=== PATIENT | female | born 1960 | race Caucasian/White ===

== ENCOUNTER 2017-08-31 11:00 | Day surgery (SDC) | payer MEDICAID ==
[~2017-08-31 11:00] MED LIST: ASPI-1264 PO; CALC260T6 PO; CYAN1TAB16 PO; IBUP-2264 PO; LEVO50TA8 PO; LISI-600 PO; LORA5SOL; OXYB5TAB11 PO; VIT1TABL83 PO
[2017-08-31] MEDS ORDERED: LIDOcaine 2% 5ml jelly ONE (12:17)
== END 2017-08-31 13:18 | disposition home or self-care (01) ==
LOC: WOUND CARE 11:00
PROVIDERS: ATTEND Surgery
DX: E11.621 Type 2 diabetes mellitus with foot ulcer (principal); L97.521 Non-pressure chronic ulcer of other part of left foot limited to breakdown of skin; L89.899 Pressure ulcer of other site, unspecified stage; E11.42 Type 2 diabetes mellitus with diabetic polyneuropathy; E03.9 Hypothyroidism, unspecified; I89.0 Lymphedema, not elsewhere classified; I10 Essential (primary) hypertension; I87.2 Venous insufficiency (chronic) (peripheral); F10.120 Alcohol abuse with intoxication, uncomplicated; Z79.82 Long term (current) use of aspirin; Z72.89 Other problems related to lifestyle
CPT/HCPCS: 11042; A6021; A6206; A6209; A6446

== ENCOUNTER 2017-09-13 10:45 | Outpatient (CLI) | payer MEDICAID | END 2017-09-13 12:05 | disposition home or self-care (01) | LOC: WOUND CARE 10:45 → EDSTATUS 11:00 → WOUND CARE 12:05 | PROVIDERS: ATTEND Surgery | DX: E11.621 Type 2 diabetes mellitus with foot ulcer (principal); L89.899 Pressure ulcer of other site, unspecified stage; L97.521 Non-pressure chronic ulcer of other part of left foot limited to breakdown of skin; I10 Essential (primary) hypertension; E03.9 Hypothyroidism, unspecified; I89.0 Lymphedema, not elsewhere classified; I87.2 Venous insufficiency (chronic) (peripheral); F10.120 Alcohol abuse with intoxication, uncomplicated; E11.42 Type 2 diabetes mellitus with diabetic polyneuropathy; Z79.82 Long term (current) use of aspirin; Z72.89 Other problems related to lifestyle | CPT/HCPCS: 99215; A4414; A6212 ==

== ENCOUNTER 2017-10-05 09:06 | Day surgery (SDC) | payer MEDICAID ==
[2017-10-05] MEDS ORDERED: LIDOcaine 2% 5ml jelly ONE (09:58)
== END 2017-10-05 11:24 | disposition home or self-care (01) ==
LOC: WOUND CARE 09:06
PROVIDERS: ATTEND Surgery
DX: E11.621 Type 2 diabetes mellitus with foot ulcer (principal); L89.899 Pressure ulcer of other site, unspecified stage; L97.521 Non-pressure chronic ulcer of other part of left foot limited to breakdown of skin; I10 Essential (primary) hypertension; E03.9 Hypothyroidism, unspecified; I89.0 Lymphedema, not elsewhere classified; I87.2 Venous insufficiency (chronic) (peripheral); F10.120 Alcohol abuse with intoxication, uncomplicated; E11.42 Type 2 diabetes mellitus with diabetic polyneuropathy; Z79.82 Long term (current) use of aspirin; Z72.89 Other problems related to lifestyle
CPT/HCPCS: 11042; A6021; A6206; A6209

== ENCOUNTER 2017-10-12 11:19 | Day surgery (SDC) | payer MEDICAID ==
[2017-10-12] MEDS ORDERED: LIDOcaine 2% 5ml jelly ONE (11:35)
[2017-10-12] MEDS ORDERED: CIPR-259 PO (12:13)
== END 2017-10-12 12:15 | disposition home or self-care (01) ==
LOC: WOUND CARE 11:19
PROVIDERS: ATTEND Surgery
DX: E11.621 Type 2 diabetes mellitus with foot ulcer (principal); L89.899 Pressure ulcer of other site, unspecified stage; L97.521 Non-pressure chronic ulcer of other part of left foot limited to breakdown of skin; E11.42 Type 2 diabetes mellitus with diabetic polyneuropathy; I10 Essential (primary) hypertension; E03.9 Hypothyroidism, unspecified; I89.0 Lymphedema, not elsewhere classified; I87.2 Venous insufficiency (chronic) (peripheral); F10.120 Alcohol abuse with intoxication, uncomplicated; Z79.82 Long term (current) use of aspirin; Z72.89 Other problems related to lifestyle
CPT/HCPCS: 11042; 87070; 87075; 87102; 87186; A6021; A6206; A6446; 87077

== ENCOUNTER 2017-10-19 10:29 | Day surgery (SDC) | payer MEDICAID ==
[~2017-10-19 10:29] MED LIST changes: +CIPR-259 PO
[2017-10-19] MEDS ORDERED: LIDOcaine 2% 5ml jelly ONE (12:19)
[2017-10-19] MEDS ORDERED: CEPH250T PO (13:05)
== END 2017-10-19 13:08 | disposition home or self-care (01) ==
LOC: WOUND CARE 10:29
PROVIDERS: ATTEND Surgery
DX: E11.621 Type 2 diabetes mellitus with foot ulcer (principal); L89.899 Pressure ulcer of other site, unspecified stage; L97.521 Non-pressure chronic ulcer of other part of left foot limited to breakdown of skin; E11.42 Type 2 diabetes mellitus with diabetic polyneuropathy; I10 Essential (primary) hypertension; E03.9 Hypothyroidism, unspecified; I89.0 Lymphedema, not elsewhere classified; I87.2 Venous insufficiency (chronic) (peripheral); F10.120 Alcohol abuse with intoxication, uncomplicated; Z79.82 Long term (current) use of aspirin; Z72.89 Other problems related to lifestyle
CPT/HCPCS: 11042; A6206; A6446

== ENCOUNTER 2017-11-02 11:06 | Day surgery (SDC) | payer MEDICAID ==
[~2017-11-02 11:06] MED LIST changes: +CEPH250T PO; -CIPR-259 PO
[2017-11-02] MEDS ORDERED: LIDOcaine 2% 5ml jelly ONE (12:38)
== END 2017-11-02 13:22 | disposition home or self-care (01) ==
LOC: WOUND CARE 11:06
PROVIDERS: ATTEND Surgery
DX: E11.621 Type 2 diabetes mellitus with foot ulcer (principal); L89.899 Pressure ulcer of other site, unspecified stage; L97.521 Non-pressure chronic ulcer of other part of left foot limited to breakdown of skin; E11.42 Type 2 diabetes mellitus with diabetic polyneuropathy; I10 Essential (primary) hypertension; E03.9 Hypothyroidism, unspecified; I89.0 Lymphedema, not elsewhere classified; I87.2 Venous insufficiency (chronic) (peripheral); F10.120 Alcohol abuse with intoxication, uncomplicated; Z79.82 Long term (current) use of aspirin; Z72.89 Other problems related to lifestyle
CPT/HCPCS: 11042; A6021; A6206; A6209; A6446

== ENCOUNTER 2017-11-09 10:58 | Day surgery (SDC) | payer MEDICAID ==
[2017-11-09] MEDS ORDERED: LIDOcaine 2% 5ml jelly ONE (11:24)
== END 2017-11-09 12:15 | disposition home or self-care (01) ==
LOC: WOUND CARE 10:58
PROVIDERS: ATTEND Surgery
DX: E11.621 Type 2 diabetes mellitus with foot ulcer (principal); L89.899 Pressure ulcer of other site, unspecified stage; L97.521 Non-pressure chronic ulcer of other part of left foot limited to breakdown of skin; E11.42 Type 2 diabetes mellitus with diabetic polyneuropathy; I10 Essential (primary) hypertension; E03.9 Hypothyroidism, unspecified; I89.0 Lymphedema, not elsewhere classified; I87.2 Venous insufficiency (chronic) (peripheral); F10.120 Alcohol abuse with intoxication, uncomplicated; Z79.82 Long term (current) use of aspirin; Z72.89 Other problems related to lifestyle
CPT/HCPCS: 11042; A6021; A6209; A6446

== ENCOUNTER 2017-11-13 19:50 | Emergency (ER) | payer MEDICAID ==
[~2017-11-13] VITALS: Ht 167.6 cm; Wt 81.8 kg
[~2017-11-13 19:50] MED LIST changes: -CEPH250T PO
[2017-11-13 22:38] VITALS: BP 116/59
== END 2017-11-13 22:39 | disposition home or self-care (01) ==
LOC: ER 19:50
DX: F10.10 Alcohol abuse, uncomplicated (principal); I10 Essential (primary) hypertension; Z60.2 Problems related to living alone; Z86.19 Personal history of other infectious and parasitic diseases; Z79.82 Long term (current) use of aspirin; Z79.899 Other long term (current) drug therapy
CPT/HCPCS: 99283; A6255; A6257; A6402; A6446

== ENCOUNTER 2017-11-16 10:49 | Day surgery (SDC) | payer MEDICAID | END 2017-11-16 11:46 | disposition home or self-care (01) | LOC: WOUND CARE 10:49 | PROVIDERS: ATTEND Surgery | DX: E11.621 Type 2 diabetes mellitus with foot ulcer (principal); L89.899 Pressure ulcer of other site, unspecified stage; L97.521 Non-pressure chronic ulcer of other part of left foot limited to breakdown of skin; L97.511 Non-pressure chronic ulcer of other part of right foot limited to breakdown of skin; G62.9 Polyneuropathy, unspecified; E03.9 Hypothyroidism, unspecified; I89.0 Lymphedema, not elsewhere classified; I87.2 Venous insufficiency (chronic) (peripheral); F10.10 Alcohol abuse, uncomplicated; I10 Essential (primary) hypertension; Z79.82 Long term (current) use of aspirin; Z79.899 Other long term (current) drug therapy; Z72.89 Other problems related to lifestyle | CPT/HCPCS: 97597; A4414; A6021; A6206; A6446 ==

== ENCOUNTER 2017-11-23 10:51 | Outpatient (CLI) | payer MEDICAID | END 2017-11-23 11:46 | disposition home or self-care (01) | LOC: WOUND CARE 10:51 → EDSTATUS 11:00 → WOUND CARE 11:46 | PROVIDERS: ATTEND Surgery | DX: E11.621 Type 2 diabetes mellitus with foot ulcer (principal); L97.521 Non-pressure chronic ulcer of other part of left foot limited to breakdown of skin; L97.511 Non-pressure chronic ulcer of other part of right foot limited to breakdown of skin; E11.42 Type 2 diabetes mellitus with diabetic polyneuropathy; I10 Essential (primary) hypertension; E03.9 Hypothyroidism, unspecified; I89.0 Lymphedema, not elsewhere classified; I87.2 Venous insufficiency (chronic) (peripheral); F10.120 Alcohol abuse with intoxication, uncomplicated; Z79.82 Long term (current) use of aspirin | CPT/HCPCS: 99211; A6021; A6206; A6212 ==

== ENCOUNTER 2017-11-30 11:19 | Day surgery (SDC) | payer MEDICAID ==
[2017-11-30] MEDS ORDERED: LIDOcaine 2% 5ml jelly ONE ×2 (11:40→11:48)
== END 2017-11-30 12:38 | disposition home or self-care (01) ==
LOC: WOUND CARE 11:19
PROVIDERS: ATTEND Surgery
DX: E11.621 Type 2 diabetes mellitus with foot ulcer (principal); E11.42 Type 2 diabetes mellitus with diabetic polyneuropathy; E03.9 Hypothyroidism, unspecified; I89.0 Lymphedema, not elsewhere classified; I87.2 Venous insufficiency (chronic) (peripheral); I10 Essential (primary) hypertension; F10.120 Alcohol abuse with intoxication, uncomplicated; Z79.82 Long term (current) use of aspirin
CPT/HCPCS: 11042; 97597; A6021; A6206; A6446

== ENCOUNTER 2017-12-07 10:47 | Day surgery (SDC) | payer MEDICAID ==
[2017-12-07] MEDS ORDERED: LIDOcaine 2% 5ml jelly ONE (11:45)
== END 2017-12-07 12:41 | disposition home or self-care (01) ==
LOC: WOUND CARE 10:47
PROVIDERS: ATTEND Surgery
DX: E11.621 Type 2 diabetes mellitus with foot ulcer (principal); L97.521 Non-pressure chronic ulcer of other part of left foot limited to breakdown of skin; L97.511 Non-pressure chronic ulcer of other part of right foot limited to breakdown of skin; E11.42 Type 2 diabetes mellitus with diabetic polyneuropathy; I87.2 Venous insufficiency (chronic) (peripheral); I10 Essential (primary) hypertension; E03.9 Hypothyroidism, unspecified; I89.0 Lymphedema, not elsewhere classified; F10.120 Alcohol abuse with intoxication, uncomplicated; Z79.82 Long term (current) use of aspirin
CPT/HCPCS: 15275; A6021; A6206; A6209; A6222; A6446; Q4131; A6250

== ENCOUNTER 2017-12-14 11:02 | Outpatient (CLI) | payer MEDICAID ==
[2017-12-14] MEDS ORDERED: gadopentetate dimeglumine 7.5 MMOL/15 ML syringe ONE (15:32)
== END 2017-12-14 12:14 | disposition home or self-care (01) ==
LOC: WOUND CARE 11:02
PROVIDERS: ATTEND Surgery
DX: E11.621 Type 2 diabetes mellitus with foot ulcer (principal); L97.521 Non-pressure chronic ulcer of other part of left foot limited to breakdown of skin; L97.511 Non-pressure chronic ulcer of other part of right foot limited to breakdown of skin; E11.42 Type 2 diabetes mellitus with diabetic polyneuropathy; I87.2 Venous insufficiency (chronic) (peripheral); I10 Essential (primary) hypertension; E03.9 Hypothyroidism, unspecified; I89.0 Lymphedema, not elsewhere classified; F10.120 Alcohol abuse with intoxication, uncomplicated; Z79.82 Long term (current) use of aspirin
CPT/HCPCS: 73720; 99211; A6021; A6206; A6209; A6222; A6446; A9579

== ENCOUNTER 2017-12-21 10:25 | Outpatient (CLI) | payer MEDICAID | END 2017-12-21 11:13 | disposition home or self-care (01) | LOC: WOUND CARE 10:25 → EDSTATUS 11:00 → WOUND CARE 11:13 | PROVIDERS: ATTEND Surgery | DX: E11.621 Type 2 diabetes mellitus with foot ulcer (principal); L97.521 Non-pressure chronic ulcer of other part of left foot limited to breakdown of skin; L97.511 Non-pressure chronic ulcer of other part of right foot limited to breakdown of skin; E11.42 Type 2 diabetes mellitus with diabetic polyneuropathy; I87.2 Venous insufficiency (chronic) (peripheral); I10 Essential (primary) hypertension; E03.9 Hypothyroidism, unspecified; I89.0 Lymphedema, not elsewhere classified; F10.120 Alcohol abuse with intoxication, uncomplicated; Z79.82 Long term (current) use of aspirin | CPT/HCPCS: 99215; A4414; A6212; 29581 ==

== ENCOUNTER 2018-01-04 10:59 | Day surgery (SDC) | payer MEDICAID | END 2018-01-04 12:11 | disposition home or self-care (01) | LOC: WOUND CARE 10:59 | PROVIDERS: ATTEND Surgery | DX: E11.621 Type 2 diabetes mellitus with foot ulcer (principal); L89.899 Pressure ulcer of other site, unspecified stage; L97.522 Non-pressure chronic ulcer of other part of left foot with fat layer exposed; E11.42 Type 2 diabetes mellitus with diabetic polyneuropathy; E11.69 Type 2 diabetes mellitus with other specified complication; M86.572 Other chronic hematogenous osteomyelitis, left ankle and foot; I87.2 Venous insufficiency (chronic) (peripheral); I10 Essential (primary) hypertension; E03.9 Hypothyroidism, unspecified; I89.0 Lymphedema, not elsewhere classified; F10.120 Alcohol abuse with intoxication, uncomplicated; Z79.82 Long term (current) use of aspirin | CPT/HCPCS: 97597; A4414 ==

== ENCOUNTER 2018-01-18 10:45 | Day surgery (SDC) | payer MEDICAID | END 2018-01-18 12:49 | disposition home or self-care (01) | LOC: WOUND CARE 10:45 | PROVIDERS: ATTEND Surgery | DX: E11.621 Type 2 diabetes mellitus with foot ulcer (principal); L89.899 Pressure ulcer of other site, unspecified stage; L97.522 Non-pressure chronic ulcer of other part of left foot with fat layer exposed; E11.42 Type 2 diabetes mellitus with diabetic polyneuropathy; E11.69 Type 2 diabetes mellitus with other specified complication; M86.572 Other chronic hematogenous osteomyelitis, left ankle and foot; I87.2 Venous insufficiency (chronic) (peripheral); I10 Essential (primary) hypertension; E03.9 Hypothyroidism, unspecified; I89.0 Lymphedema, not elsewhere classified; F10.120 Alcohol abuse with intoxication, uncomplicated; Z79.82 Long term (current) use of aspirin | CPT/HCPCS: 97597; A4414; A6021; A6206 ==

== ENCOUNTER 2018-02-01 10:57 | Day surgery (SDC) | payer MEDICAID | END 2018-02-01 13:07 | disposition home or self-care (01) | LOC: WOUND CARE 10:57 | PROVIDERS: ATTEND Surgery | DX: E11.621 Type 2 diabetes mellitus with foot ulcer (principal); L97.522 Non-pressure chronic ulcer of other part of left foot with fat layer exposed; L89.899 Pressure ulcer of other site, unspecified stage; L97.511 Non-pressure chronic ulcer of other part of right foot limited to breakdown of skin; E11.42 Type 2 diabetes mellitus with diabetic polyneuropathy; E11.69 Type 2 diabetes mellitus with other specified complication; M86.572 Other chronic hematogenous osteomyelitis, left ankle and foot; I87.2 Venous insufficiency (chronic) (peripheral); I10 Essential (primary) hypertension; E03.9 Hypothyroidism, unspecified; I89.0 Lymphedema, not elsewhere classified; F10.120 Alcohol abuse with intoxication, uncomplicated; Z79.82 Long term (current) use of aspirin | CPT/HCPCS: 11042; A6021; A6206 ==

== ENCOUNTER 2018-02-08 10:48 | Day surgery (SDC) | payer MEDICAID ==
[2018-02-08] MEDS ORDERED: LIDOcaine 2% 5ml jelly ONE (11:14)
== END 2018-02-08 11:49 | disposition home or self-care (01) ==
LOC: WOUND CARE 10:48
PROVIDERS: ATTEND Surgery
DX: E11.621 Type 2 diabetes mellitus with foot ulcer (principal); L97.522 Non-pressure chronic ulcer of other part of left foot with fat layer exposed; L97.511 Non-pressure chronic ulcer of other part of right foot limited to breakdown of skin; E11.42 Type 2 diabetes mellitus with diabetic polyneuropathy; E11.69 Type 2 diabetes mellitus with other specified complication; M86.572 Other chronic hematogenous osteomyelitis, left ankle and foot; I87.2 Venous insufficiency (chronic) (peripheral); I10 Essential (primary) hypertension; E03.9 Hypothyroidism, unspecified; I89.0 Lymphedema, not elsewhere classified; F10.120 Alcohol abuse with intoxication, uncomplicated; Z79.82 Long term (current) use of aspirin
CPT/HCPCS: 97597; A6021; A6206

== ENCOUNTER 2018-02-15 09:42 | Day surgery (SDC) | payer MEDICAID ==
[2018-02-15] MEDS ORDERED: LIDOcaine 2% 5ml jelly ONE (10:13)
== END 2018-02-15 11:00 | disposition home or self-care (01) ==
LOC: WOUND CARE 09:42
PROVIDERS: ATTEND Surgery
DX: E11.621 Type 2 diabetes mellitus with foot ulcer (principal); L89.892 Pressure ulcer of other site, stage 2; L97.511 Non-pressure chronic ulcer of other part of right foot limited to breakdown of skin; L97.522 Non-pressure chronic ulcer of other part of left foot with fat layer exposed; E11.42 Type 2 diabetes mellitus with diabetic polyneuropathy; E11.69 Type 2 diabetes mellitus with other specified complication; M86.572 Other chronic hematogenous osteomyelitis, left ankle and foot; I87.2 Venous insufficiency (chronic) (peripheral); I10 Essential (primary) hypertension; E03.9 Hypothyroidism, unspecified; I89.0 Lymphedema, not elsewhere classified; F10.120 Alcohol abuse with intoxication, uncomplicated; Z79.82 Long term (current) use of aspirin
CPT/HCPCS: 97597; A6021; A6206

== ENCOUNTER 2018-02-24 08:53 | Day surgery (SDC) | payer MEDICAID | END 2018-02-24 10:12 | disposition home or self-care (01) | LOC: WOUND CARE 08:53 | PROVIDERS: ATTEND Surgery | DX: E11.621 Type 2 diabetes mellitus with foot ulcer (principal); L89.892 Pressure ulcer of other site, stage 2; L97.511 Non-pressure chronic ulcer of other part of right foot limited to breakdown of skin; L97.522 Non-pressure chronic ulcer of other part of left foot with fat layer exposed; E11.42 Type 2 diabetes mellitus with diabetic polyneuropathy; E11.69 Type 2 diabetes mellitus with other specified complication; M86.572 Other chronic hematogenous osteomyelitis, left ankle and foot; I87.2 Venous insufficiency (chronic) (peripheral); I10 Essential (primary) hypertension; E03.9 Hypothyroidism, unspecified; I89.0 Lymphedema, not elsewhere classified; F10.120 Alcohol abuse with intoxication, uncomplicated; Z79.82 Long term (current) use of aspirin | CPT/HCPCS: 97597; A6021; A6206 ==

== ENCOUNTER 2018-03-03 09:13 | Outpatient (CLI) | payer MEDICAID | END 2018-03-03 10:49 | disposition home or self-care (01) | LOC: WOUND CARE 09:13 | PROVIDERS: ATTEND Surgery | DX: E11.621 Type 2 diabetes mellitus with foot ulcer (principal); L89.892 Pressure ulcer of other site, stage 2; L97.511 Non-pressure chronic ulcer of other part of right foot limited to breakdown of skin; L97.522 Non-pressure chronic ulcer of other part of left foot with fat layer exposed; E11.42 Type 2 diabetes mellitus with diabetic polyneuropathy; E11.69 Type 2 diabetes mellitus with other specified complication; M86.572 Other chronic hematogenous osteomyelitis, left ankle and foot; I87.2 Venous insufficiency (chronic) (peripheral); I10 Essential (primary) hypertension; E03.9 Hypothyroidism, unspecified; I89.0 Lymphedema, not elsewhere classified; F10.120 Alcohol abuse with intoxication, uncomplicated; Z79.82 Long term (current) use of aspirin | CPT/HCPCS: 99214; A4414 ==

== ENCOUNTER 2018-03-22 10:57 | Day surgery (SDC) | payer MEDICAID | END 2018-03-22 12:00 | disposition home or self-care (01) | LOC: WOUND CARE 10:57 | PROVIDERS: ATTEND Surgery | DX: E11.621 Type 2 diabetes mellitus with foot ulcer (principal); L89.892 Pressure ulcer of other site, stage 2; L97.511 Non-pressure chronic ulcer of other part of right foot limited to breakdown of skin; L97.522 Non-pressure chronic ulcer of other part of left foot with fat layer exposed; E11.42 Type 2 diabetes mellitus with diabetic polyneuropathy; E11.69 Type 2 diabetes mellitus with other specified complication; M86.572 Other chronic hematogenous osteomyelitis, left ankle and foot; I87.2 Venous insufficiency (chronic) (peripheral); I10 Essential (primary) hypertension; E03.9 Hypothyroidism, unspecified; I89.0 Lymphedema, not elsewhere classified; F10.120 Alcohol abuse with intoxication, uncomplicated; Z79.82 Long term (current) use of aspirin | CPT/HCPCS: 97597; A4414; A6222 ==

== ENCOUNTER 2018-04-05 11:00 | Day surgery (SDC) | payer MEDICAID | END 2018-04-05 12:40 | disposition home or self-care (01) | LOC: WOUND CARE 11:00 | PROVIDERS: ATTEND Surgery | DX: E11.621 Type 2 diabetes mellitus with foot ulcer (principal); L89.892 Pressure ulcer of other site, stage 2; L97.511 Non-pressure chronic ulcer of other part of right foot limited to breakdown of skin; E11.42 Type 2 diabetes mellitus with diabetic polyneuropathy; E11.69 Type 2 diabetes mellitus with other specified complication; M86.572 Other chronic hematogenous osteomyelitis, left ankle and foot; I87.2 Venous insufficiency (chronic) (peripheral); I10 Essential (primary) hypertension; E03.9 Hypothyroidism, unspecified; I89.0 Lymphedema, not elsewhere classified; F10.120 Alcohol abuse with intoxication, uncomplicated; Z79.82 Long term (current) use of aspirin | CPT/HCPCS: 99215; A4414; A6021 ==

== ENCOUNTER 2019-01-09 10:34 | Day surgery (SDC) | payer MEDICAID ==
[2019-01-09] MEDS ORDERED: FOLI0.4T2 PO (12:48)
--- NOTE | 2019-01-09 13:00 | NUR ---
Patient ambulated with walker accompanied by daughter from [facility] and was admitted to outpatient wound care for physician visit with Uche Cruz MD. Dressing removed, wound cleansed. Patient assessed for changes in conditions, medications and medical history. 1220 - Dr. Cruz at bedside accompanied by RN. Wound assessed, time out performed by MD/RN. Wound debrided as detailed in the physician progress/procedure note. Plan of care discussed with patient. Dressings placed per MD orders. Patient instructed on the signs and symptoms of infection and to call the Wound Center if any occur or to go to the ED if we are closed: Increased pain in wound Increase in drainage from the wound Redness in the skin surrounding the wound Bleeding from the wound Temperature of 101 or greater Patient instructed that the weight of their body puts a large amount of pressure on their wounds. This pressure keeps the new tissue from growing and inhibits new blood vessels from forming. Explained that, if they continue to bear weight on a body part that has a wound, the time it takes to heal the wound increases, the wound may get worse or the wound may not heal at all. Patient verbalized understanding of all discharge instructions and plan of care and ambulated with walker accompanied by her daughter out to [facility] in stable condition with no sign or symptom of distress at time of discharge.
== END 2019-01-09 13:40 | disposition home or self-care (01) ==
LOC: WOUND CARE 10:34
PROVIDERS: ATTEND Surgery
DX: E11.621 Type 2 diabetes mellitus with foot ulcer (principal); L89.892 Pressure ulcer of other site, stage 2; L97.511 Non-pressure chronic ulcer of other part of right foot limited to breakdown of skin; L97.521 Non-pressure chronic ulcer of other part of left foot limited to breakdown of skin; E11.42 Type 2 diabetes mellitus with diabetic polyneuropathy; E11.69 Type 2 diabetes mellitus with other specified complication; M86.572 Other chronic hematogenous osteomyelitis, left ankle and foot; I87.2 Venous insufficiency (chronic) (peripheral); I10 Essential (primary) hypertension; E03.9 Hypothyroidism, unspecified; I89.0 Lymphedema, not elsewhere classified; F10.120 Alcohol abuse with intoxication, uncomplicated; Z79.82 Long term (current) use of aspirin
CPT/HCPCS: 97597; A6209; L3260; A6021; A6206; A6446

== ENCOUNTER 2019-01-16 10:40 | Day surgery (SDC) | payer MEDICAID ==
[~2019-01-16 10:40] MED LIST changes: -ASPI-1264 PO; -CYAN1TAB16 PO; +FOLI0.4T2 PO; -LISI-600 PO
[2019-01-16] MEDS ORDERED: LIDOcaine/PRILOcaine 5gm cream TP ONE (11:17)
--- NOTE | 2019-01-16 14:54 | NUR ---
Patient ambulated independently from [facility] and was admitted to outpatient wound care for physician visit with Uche Cruz MD. Dressing removed, wound cleansed and Emla cream applied per order. Patient assessed for changes in conditions, medications and medical history. Dr. Cruz at bedside accompanied by RN. Wound assessed, time out performed by MD/RN. Wound debrided as detailed in the physician progress/procedure note. Plan of care discussed with patient. Dressings placed per MD orders. Patient instructed on the signs and symptoms of infection and to call the Wound Center if any occur or to go to the ED if we are closed: Increased pain in wound Increase in drainage from the wound Redness in the skin surrounding the wound Bleeding from the wound Temperature of 101 or greater Patient instructed that the weight of their body puts a large amount of pressure on their wounds. This pressure keeps the new tissue from growing and inhibits new blood vessels from forming. Explained that, if they continue to bear weight on a body part that has a wound, the time it takes to heal the wound increases, the wound may get worse or the wound may not heal at all. Patient verbalized understanding of all discharge instructions and plan of care and ambulated independently out to [facility] in stable condition with no sign or symptom of distress at time of discharge. Addendum: 01/16/19 at 1455 by Macy Krause RN Amended: Links added.
== END 2019-01-16 12:57 | disposition home or self-care (01) ==
LOC: WOUND CARE 10:40
PROVIDERS: ATTEND Surgery
DX: E11.621 Type 2 diabetes mellitus with foot ulcer (principal); L97.511 Non-pressure chronic ulcer of other part of right foot limited to breakdown of skin; L97.521 Non-pressure chronic ulcer of other part of left foot limited to breakdown of skin; E11.42 Type 2 diabetes mellitus with diabetic polyneuropathy; E11.69 Type 2 diabetes mellitus with other specified complication; M86.572 Other chronic hematogenous osteomyelitis, left ankle and foot; I87.2 Venous insufficiency (chronic) (peripheral); I10 Essential (primary) hypertension; E03.9 Hypothyroidism, unspecified; I89.0 Lymphedema, not elsewhere classified; F10.120 Alcohol abuse with intoxication, uncomplicated; Z79.82 Long term (current) use of aspirin
CPT/HCPCS: 97597; A6209; A6021; A6206; A6446

== ENCOUNTER 2019-01-25 09:15 | Day surgery (SDC) | payer MEDICAID ==
--- NOTE | 2019-01-25 11:00 | NUR ---
Patient ambulated with cane from [facility] and was admitted to outpatient wound care for physician visit with Uche Cruz MD. Dressing removed, wound cleansed. Patient assessed for changes in conditions, medications and medical history. 1000 - Dr. Cruz at bedside accompanied by RN. Wound assessed, time out performed by MD/RN. Wound debrided as detailed in the physician progress/procedure note. Plan of care discussed with patient. Dressings placed per MD orders. Patient instructed on the signs and symptoms of infection and to call the Wound Center if any occur or to go to the ED if we are closed: Increased pain in wound Increase in drainage from the wound Redness in the skin surrounding the wound Bleeding from the wound Temperature of 101 or greater Patient instructed that the weight of their body puts a large amount of pressure on their wounds. This pressure keeps the new tissue from growing and inhibits new blood vessels from forming. Explained that, if they continue to bear weight on a body part that has a wound, the time it takes to heal the wound increases, the wound may get worse or the wound may not heal at all. Patient verbalized understanding of all discharge instructions and plan of care and ambulated with cane out to [facility] in stable condition with no sign or symptom of distress at time of discharge.
== END 2019-01-25 11:23 | disposition home or self-care (01) ==
LOC: WOUND CARE 09:15
PROVIDERS: ATTEND Surgery
DX: E11.621 Type 2 diabetes mellitus with foot ulcer (principal); L97.511 Non-pressure chronic ulcer of other part of right foot limited to breakdown of skin; L97.521 Non-pressure chronic ulcer of other part of left foot limited to breakdown of skin; E11.42 Type 2 diabetes mellitus with diabetic polyneuropathy; E11.69 Type 2 diabetes mellitus with other specified complication; M86.572 Other chronic hematogenous osteomyelitis, left ankle and foot; I87.2 Venous insufficiency (chronic) (peripheral); I10 Essential (primary) hypertension; E03.9 Hypothyroidism, unspecified; I89.0 Lymphedema, not elsewhere classified; F10.120 Alcohol abuse with intoxication, uncomplicated; Z79.82 Long term (current) use of aspirin
CPT/HCPCS: 97597; A6021; A6206; A6446

== ENCOUNTER 2019-02-01 09:30 | Day surgery (SDC) | payer MEDICAID ==
[2019-02-01] MEDS ORDERED: LIDOcaine/PRILOcaine 5gm cream TP ONE (10:06)
--- NOTE | 2019-02-01 13:49 | NUR ---
Patient ambulated independently from lobby with a walker. Patient admitted to outpatient wound care for physician visit with Uche Cruz MD. Dressing removed, wounds cleansed and Emla cream applied per order. Patient assessed for changes in conditions, medications and medical history. Dr. Cruz at bedside accompanied by RN. Wounds assessed, time out performed by MD/RN. Wounds debrided as detailed in the physician progress/procedure note. Plan of care discussed with patient. Dressings placed per MD orders. Patient instructed on the signs and symptoms of infection and to call the Wound Center if any occur or to go to the ED if we are closed: Increased pain in wound Increase in drainage from the wound Redness in the skin surrounding the wound Bleeding from the wound Temperature of 101 or greater Patient instructed that the weight of their body puts a large amount of pressure on their wounds. This pressure keeps the new tissue from growing and inhibits new blood vessels from forming. Explained that, if they continue to bear weight on a body part that has a wound, the time it takes to heal the wound increases, the wound may get worse or the wound may not heal at all. Patient verbalized understanding of all discharge instructions and plan of care and [facility] independently [facility] stable condition with no sign or symptom of distress at time of discharge. Addendum: 02/01/19 at 1351 by Macy Krause RN Amended: Links added.
== END 2019-02-01 10:20 | disposition home or self-care (01) ==
LOC: WOUND CARE 09:30
PROVIDERS: ATTEND Surgery
DX: E11.621 Type 2 diabetes mellitus with foot ulcer (principal); L97.511 Non-pressure chronic ulcer of other part of right foot limited to breakdown of skin; L97.521 Non-pressure chronic ulcer of other part of left foot limited to breakdown of skin; E11.42 Type 2 diabetes mellitus with diabetic polyneuropathy; E11.69 Type 2 diabetes mellitus with other specified complication; M86.572 Other chronic hematogenous osteomyelitis, left ankle and foot; I87.2 Venous insufficiency (chronic) (peripheral); I10 Essential (primary) hypertension; E03.9 Hypothyroidism, unspecified; I89.0 Lymphedema, not elsewhere classified; F10.120 Alcohol abuse with intoxication, uncomplicated; Z79.82 Long term (current) use of aspirin
CPT/HCPCS: 97597; A6209; A6223; C5275; Q4102; A6021; A6206; A6250; A6446

== ENCOUNTER 2019-02-08 09:38 | Day surgery (SDC) | payer MEDICAID ==
--- NOTE | 2019-02-08 11:15 | NUR ---
Patient ambulated with walker from [facility] and was admitted to outpatient wound care for physician visit with Uche Cruz MD. Dressing removed, wound cleansed and lidocaine applied per order. Patient assessed for changes in conditions, medications and medical history. 1033 - Dr. Cruz at bedside accompanied by RN. Wound assessed, time out performed by MD/RN. Wound debrided as detailed in the physician progress/procedure note. Plan of care discussed with patient. Dressings placed per MD orders. Patient instructed on the signs and symptoms of infection and to call the Wound Center if any occur or to go to the ED if we are closed: Increased pain in wound Increase in drainage from the wound Redness in the skin surrounding the wound Bleeding from the wound Temperature of 101 or greater Patient instructed that the weight of their body puts a large amount of pressure on their wounds. This pressure keeps the new tissue from growing and inhibits new blood vessels from forming. Explained that, if they continue to bear weight on a body part that has a wound, the time it takes to heal the wound increases, the wound may get worse or the wound may not heal at all. Patient verbalized understanding of all discharge instructions and plan of care and ambulated with walker out to [facility] in stable condition with no sign or symptom of distress at time of discharge.
== END 2019-02-08 11:07 | disposition home or self-care (01) ==
LOC: WOUND CARE 09:38
PROVIDERS: ATTEND Surgery
DX: E11.621 Type 2 diabetes mellitus with foot ulcer (principal); L97.511 Non-pressure chronic ulcer of other part of right foot limited to breakdown of skin; L97.521 Non-pressure chronic ulcer of other part of left foot limited to breakdown of skin; E11.42 Type 2 diabetes mellitus with diabetic polyneuropathy; E11.69 Type 2 diabetes mellitus with other specified complication; M86.572 Other chronic hematogenous osteomyelitis, left ankle and foot; I87.2 Venous insufficiency (chronic) (peripheral); I10 Essential (primary) hypertension; E03.9 Hypothyroidism, unspecified; I89.0 Lymphedema, not elsewhere classified; F10.120 Alcohol abuse with intoxication, uncomplicated; Z79.82 Long term (current) use of aspirin
CPT/HCPCS: 97597; A6209; A6021; A6206; A6446

== ENCOUNTER 2019-02-15 09:30 | Outpatient (CLI) | payer MEDICAID ==
--- NOTE | 2019-02-15 11:00 | NUR ---
Patient ambulated with walker from [facility] and was admitted to outpatient wound care for physician visit with Uche Cruz MD. Dressing removed, wound cleansed. Patient assessed for changes in conditions, medications and medical history. 1005 - Dr. Cruz at bedside accompanied by RN. Wound assessed, time out performed by MD/RN. Wound debrided as detailed in the physician progress/procedure note. Plan of care discussed with patient. Dressings placed per MD orders. Patient instructed on the signs and symptoms of infection and to call the Wound Center if any occur or to go to the ED if we are closed: Increased pain in wound Increase in drainage from the wound Redness in the skin surrounding the wound Bleeding from the wound Temperature of 101 or greater Patient instructed that the weight of their body puts a large amount of pressure on their wounds. This pressure keeps the new tissue from growing and inhibits new blood vessels from forming. Explained that, if they continue to bear weight on a body part that has a wound, the time it takes to heal the wound increases, the wound may get worse or the wound may not heal at all. Patient verbalized understanding of all discharge instructions and plan of care and ambulated with walker out to [facility] in stable condition with no sign or symptom of distress at time of discharge.
== END 2019-02-15 11:10 | disposition home or self-care (01) ==
LOC: WOUND CARE 09:30 → EDSTATUS 09:30 → WOUND CARE 11:10
PROVIDERS: ATTEND Surgery
DX: E11.621 Type 2 diabetes mellitus with foot ulcer (principal); L97.511 Non-pressure chronic ulcer of other part of right foot limited to breakdown of skin; L97.521 Non-pressure chronic ulcer of other part of left foot limited to breakdown of skin; E11.42 Type 2 diabetes mellitus with diabetic polyneuropathy; E11.69 Type 2 diabetes mellitus with other specified complication; M86.572 Other chronic hematogenous osteomyelitis, left ankle and foot; I87.2 Venous insufficiency (chronic) (peripheral); I10 Essential (primary) hypertension; E03.9 Hypothyroidism, unspecified; I89.0 Lymphedema, not elsewhere classified; F10.120 Alcohol abuse with intoxication, uncomplicated; Z79.82 Long term (current) use of aspirin
CPT/HCPCS: A6209; G0463; A6021; A6206; A6446

== ENCOUNTER 2019-03-15 08:30 | Day surgery (SDC) | payer MEDICAID ==
--- NOTE | 2019-03-15 10:30 | NUR ---
Patient ambulated with walker from [facility] and was admitted to outpatient wound care for physician visit with Uche Cruz MD. Dressing removed, wound cleansed. Patient assessed for changes in conditions, medications and medical history. 0950 - Dr. Cruz at bedside accompanied by RN. Wound assessed, time out performed by MD/RN. Wound debrided as detailed in the physician progress/procedure note. Plan of care discussed with patient. Dressings placed per MD orders. Patient instructed on the signs and symptoms of infection and to call the Wound Center if any occur or to go to the ED if we are closed: Increased pain in wound Increase in drainage from the wound Redness in the skin surrounding the wound Bleeding from the wound Temperature of 101 or greater Patient instructed that the weight of their body puts a large amount of pressure on their wounds. This pressure keeps the new tissue from growing and inhibits new blood vessels from forming. Explained that, if they continue to bear weight on a body part that has a wound, the time it takes to heal the wound increases, the wound may get worse or the wound may not heal at all. Patient verbalized understanding of all discharge instructions and plan of care and ambulated with walker accompanied by her daughter out to [facility] in stable condition with no sign or symptom of distress at time of discharge.
[2019-03-15] MEDS ORDERED: MYCOL15CR TOP (15:20)
== END 2019-03-15 10:21 | disposition home or self-care (01) ==
LOC: WOUND CARE 08:30
PROVIDERS: ATTEND Surgery
DX: E11.621 Type 2 diabetes mellitus with foot ulcer (principal); L97.515 Non-pressure chronic ulcer of other part of right foot with muscle involvement without evidence of necrosis; L97.521 Non-pressure chronic ulcer of other part of left foot limited to breakdown of skin; E11.42 Type 2 diabetes mellitus with diabetic polyneuropathy; E11.69 Type 2 diabetes mellitus with other specified complication; M86.572 Other chronic hematogenous osteomyelitis, left ankle and foot; I87.2 Venous insufficiency (chronic) (peripheral); I10 Essential (primary) hypertension; E03.9 Hypothyroidism, unspecified; I89.0 Lymphedema, not elsewhere classified; F10.120 Alcohol abuse with intoxication, uncomplicated; Z79.82 Long term (current) use of aspirin
CPT/HCPCS: 11043; 97597; A6209; A6021; A6206; A6446

== ENCOUNTER 2019-03-29 08:20 | Day surgery (SDC) | payer MEDICAID ==
[~2019-03-29 08:20] MED LIST changes: -IBUP-2264 PO; +IBUP-2697 PO; +MYCOL15CR TOP; -OXYB5TAB11 PO; +OXYB5TAB16 PO
[2019-03-29] MEDS ORDERED: LIDOcaine/PRILOcaine 5gm cream TP ONE (09:29)
--- NOTE | 2019-03-29 15:05 | NUR ---
0900 Patient ambulated safely into [facility]. Patient admitted to outpatient wound care clinic for follow-up visit with physician. Dressing removed, wound cleansed. Patient assessed for changes in conditions, medications and medical history. Patient showed no s/s of distress at time of assessment. 1010 at bedside accompanied by RN. Wounds assessed, time out performed and debridement done today as detailed in the physician progress/procedure note. Plan of care discussed with patient. Dressings placed per MD orders. Patient instructed on the signs and symptoms of infection and to call the Wound Center if any occur or to go to the ED if we are closed: Increased pain in wound Increase in drainage from the wound Redness in the skin surrounding the wound Bleeding from the wound Temperature of 101 or greater Patient instructed that the weight of their body puts a large amount of pressure on their wounds. This pressure keeps the new tissue from growing and inhibits new blood vessels from forming. Explained that, if they continue to bear weight on a body part that has a wound, the time it takes to heal the wound increases, the wound may get worse or the wound may not heal at all. Patient verbalized understanding of all discharge instructions and plan of care. Patient ambulated independently out to [facility] and is in stable condition with no sign or symptom of distress at time of discharge.
== END 2019-03-29 10:54 | disposition home or self-care (01) ==
LOC: WOUND CARE 08:20
PROVIDERS: ATTEND Surgery
DX: E11.621 Type 2 diabetes mellitus with foot ulcer (principal); L97.511 Non-pressure chronic ulcer of other part of right foot limited to breakdown of skin; L97.523 Non-pressure chronic ulcer of other part of left foot with necrosis of muscle; E11.42 Type 2 diabetes mellitus with diabetic polyneuropathy; E11.69 Type 2 diabetes mellitus with other specified complication; M86.572 Other chronic hematogenous osteomyelitis, left ankle and foot; I87.2 Venous insufficiency (chronic) (peripheral); I10 Essential (primary) hypertension; E03.9 Hypothyroidism, unspecified; I89.0 Lymphedema, not elsewhere classified; F10.120 Alcohol abuse with intoxication, uncomplicated; Z79.82 Long term (current) use of aspirin
CPT/HCPCS: 11042; 97597; A6209; A6222; A4663; A6021

== ENCOUNTER 2019-05-03 09:16 | Day surgery (SDC) | payer MEDICAID ==
[2019-05-03] MEDS ORDERED: LIDOcaine 2% 5ml jelly ONE (09:33)
== END 2019-05-03 10:30 | disposition home or self-care (01) ==
LOC: WOUND CARE 09:16
PROVIDERS: ATTEND Surgery
DX: E11.621 Type 2 diabetes mellitus with foot ulcer (principal); L89.892 Pressure ulcer of other site, stage 2; L97.522 Non-pressure chronic ulcer of other part of left foot with fat layer exposed; S91.101D Unspecified open wound of right great toe without damage to nail, subsequent encounter; E11.42 Type 2 diabetes mellitus with diabetic polyneuropathy; E11.69 Type 2 diabetes mellitus with other specified complication; M86.572 Other chronic hematogenous osteomyelitis, left ankle and foot; I87.2 Venous insufficiency (chronic) (peripheral); I10 Essential (primary) hypertension; E03.9 Hypothyroidism, unspecified; I89.0 Lymphedema, not elsewhere classified; F10.120 Alcohol abuse with intoxication, uncomplicated; Z79.82 Long term (current) use of aspirin; X58.XXXD Exposure to other specified factors, subsequent encounter
CPT/HCPCS: 97597; A4663; A6021; A6154; A6446

== ENCOUNTER 2019-05-10 08:40 | Day surgery (SDC) | payer MEDICAID ==
[2019-05-10] MEDS ORDERED: LIDOcaine 2% 5ml jelly ONE (09:43)
== END 2019-05-10 11:15 | disposition home or self-care (01) ==
LOC: WOUND CARE 08:40
PROVIDERS: ATTEND Surgery
DX: E11.621 Type 2 diabetes mellitus with foot ulcer (principal); L89.892 Pressure ulcer of other site, stage 2; L97.522 Non-pressure chronic ulcer of other part of left foot with fat layer exposed; S91.101D Unspecified open wound of right great toe without damage to nail, subsequent encounter; E11.42 Type 2 diabetes mellitus with diabetic polyneuropathy; E11.69 Type 2 diabetes mellitus with other specified complication; M86.572 Other chronic hematogenous osteomyelitis, left ankle and foot; I87.2 Venous insufficiency (chronic) (peripheral); I10 Essential (primary) hypertension; E03.9 Hypothyroidism, unspecified; I89.0 Lymphedema, not elsewhere classified; F10.120 Alcohol abuse with intoxication, uncomplicated; Z79.82 Long term (current) use of aspirin; X58.XXXD Exposure to other specified factors, subsequent encounter
CPT/HCPCS: 11042; 97597; A6209; A4663; A6021; A6154; A6446

== ENCOUNTER 2019-05-24 08:28 | Outpatient (CLI) | payer MEDICAID ==
[2019-05-24] MEDS ORDERED: LIDOcaine 2% 5ml jelly ONE (09:26)
== END 2019-05-24 10:33 | disposition home or self-care (01) ==
LOC: WOUND CARE 08:28 → EDSTATUS 08:30 → WOUND CARE 10:33
PROVIDERS: ATTEND Surgery
DX: E11.621 Type 2 diabetes mellitus with foot ulcer (principal); L89.899 Pressure ulcer of other site, unspecified stage; L97.522 Non-pressure chronic ulcer of other part of left foot with fat layer exposed; E11.42 Type 2 diabetes mellitus with diabetic polyneuropathy; E11.69 Type 2 diabetes mellitus with other specified complication; M86.572 Other chronic hematogenous osteomyelitis, left ankle and foot; I87.2 Venous insufficiency (chronic) (peripheral); I10 Essential (primary) hypertension; E03.9 Hypothyroidism, unspecified; I89.0 Lymphedema, not elsewhere classified; F10.120 Alcohol abuse with intoxication, uncomplicated; Z79.82 Long term (current) use of aspirin
CPT/HCPCS: A6209; G0463; A4663; A6021; A6154; A6446

== ENCOUNTER 2019-05-31 09:35 | Day surgery (SDC) | payer MEDICAID ==
[2019-05-31] MEDS ORDERED: LIDOcaine 2% 5ml jelly ONE (09:50)
== END 2019-05-31 11:10 | disposition home or self-care (01) ==
LOC: WOUND CARE 09:35
PROVIDERS: ATTEND Surgery
DX: E11.621 Type 2 diabetes mellitus with foot ulcer (principal); L89.899 Pressure ulcer of other site, unspecified stage; L97.522 Non-pressure chronic ulcer of other part of left foot with fat layer exposed; E11.42 Type 2 diabetes mellitus with diabetic polyneuropathy; E11.69 Type 2 diabetes mellitus with other specified complication; M86.572 Other chronic hematogenous osteomyelitis, left ankle and foot; I87.2 Venous insufficiency (chronic) (peripheral); I10 Essential (primary) hypertension; E03.9 Hypothyroidism, unspecified; I89.0 Lymphedema, not elsewhere classified; F10.120 Alcohol abuse with intoxication, uncomplicated; Z79.82 Long term (current) use of aspirin
CPT/HCPCS: A4663; A6154; A6446

== ENCOUNTER 2019-06-14 08:30 | Day surgery (SDC) | payer MEDICAID ==
[2019-06-14] MEDS ORDERED: LIDOcaine/PRILOcaine 5gm cream TP ONE (09:38)
== END 2019-06-14 11:06 | disposition home or self-care (01) ==
LOC: WOUND CARE 08:30
PROVIDERS: ATTEND Surgery
DX: E11.621 Type 2 diabetes mellitus with foot ulcer (principal); L89.899 Pressure ulcer of other site, unspecified stage; L97.522 Non-pressure chronic ulcer of other part of left foot with fat layer exposed; E11.42 Type 2 diabetes mellitus with diabetic polyneuropathy; E11.69 Type 2 diabetes mellitus with other specified complication; M86.572 Other chronic hematogenous osteomyelitis, left ankle and foot; I87.2 Venous insufficiency (chronic) (peripheral); I10 Essential (primary) hypertension; E03.9 Hypothyroidism, unspecified; I89.0 Lymphedema, not elsewhere classified; F10.120 Alcohol abuse with intoxication, uncomplicated; Z79.82 Long term (current) use of aspirin
CPT/HCPCS: A4663; A6021; A6154; A6446

== ENCOUNTER 2019-07-13 10:59 | Emergency (ER) | payer MEDICAID ==
[~2019-07-13] VITALS: Ht 175.3 cm; Wt 83.2 kg
--- NOTE | 2019-07-13 11:36 | NUR ---
advised provider that pt has a 102.6 oral temp. Addendum: 07/13/19 at 1142 by JUNITO advised provider that pt has a 102.6 oral temp. pt took 400 mg ibuprofen at 1000
[2019-07-13] MEDS ORDERED: acetaminophen 325mg tablet PO STA (11:49)
[2019-07-13] MEDS ORDERED: normal saline 1000ML IV soln IV ONE (11:50)
[2019-07-13] MEDS ORDERED: CefTRIAXone 2gm/D5W 50ml 50 ML IV ONE (11:50)
[2019-07-13 12:15] LABS: BASOPHILS % (AUTO) 0.1 % (0-1); EOSINOPHILS % (AUTO) 0 % (0-6); HEMATOCRIT 38.6 % (35.0-45.0); HEMOGLOBIN 13.5 g/dl (12.0-16.0); LYMPHOCYTES # (AUTO) 0.3 X10'3 (1.1-4.8); LYMPHOCYTES % (AUTO) 1.9 % (21-51); MEAN CORPUSCULAR HEMOGLOBIN 34.7 PG (27.0-31.0); MEAN CORPUSCULAR HGB CONC 35.1 g/dL (33.0-36.5); MEAN CORPUSCULAR VOLUME 98.8 FL (78-98); MEAN PLATELET VOLUME 8.5 FL (7.4-10.4); MONOCYTES # (AUTO) 0.4 X10'3 (0-0.9); MONOCYTES % (AUTO) 2.8 % (2-12); NEUTROPHILS # (AUTO) 13.1 X10'3 (1.8-7.7); NEUTROPHILS % (AUTO) 95.2 % (42-75); PLATELET COUNT 75 X10'3 (140-440); RED BLOOD COUNT 3.91 X10'6 (4.20-5.60); RED CELL DISTRIBUTION WIDTH 14.1 % (11.5-14.5); WHITE BLOOD COUNT 13.7 X10'3 (4.5-11.0)
--- NOTE | 2019-07-13 12:19 | NUR ---
pt out to xray with ct technician via wheelchair
[2019-07-13 12:28] LABS: ALANINE AMINOTRANSFERASE 33 U/L (12-78); ALBUMIN 2.8 G/DL (3.4-5.0); ALBUMIN/GLOBULIN RATIO 0.5 (1.1-1.5); ALKALINE PHOSPHATASE 107 IU/L (46-116); ANION GAP 9 (8-16); ASPARTATE AMINO TRANSFERASE 99 U/L (10-37); BILIRUBIN,TOTAL 2.5 MG/DL (0.1-1.0); BLOOD UREA NITROGEN 8 MG/DL (7-18); BUN/CREATININE RATIO 9.1 (6.6-38.0); CALCIUM 8.4 MG/DL (8.5-10.1); CHLORIDE 97 MMOL/L (99-107); CREATININE 0.88 MG/DL (0.40-0.90); GLUCOSE 99 MG/DL (70-104); MAGNESIUM 1.1 MG/DL (1.5-2.4); POTASSIUM 3.2 MMOL/L (3.5-5.1); SODIUM 134 MMOL/L (135-145); TOTAL CARBON DIOXIDE 27.7 MMOL/L (24-32); TOTAL PROTEIN 8.7 G/DL (6.4-8.2); eGFR 66 ML/MIN
[2019-07-13 12:29] LABS: PARTIAL THROMBOPLASTIN TIME 32 SECONDS (22-32)
[2019-07-13] MEDS ORDERED: vancomycin/NS 1 GM ADD-VANTAGE 250 ML IV ONE (12:50)
--- NOTE | 2019-07-13 13:32 | NUR ---
DR. CAREY IS CURRENTLY IN [facility]. MESSAGE HAS BEEN RELAYED AND HE WILL CALL BACK WHEN AVAILABLE.
[2019-07-13 14:10] LABS: CLARITY,URINE CLOUDY (Clear); COLOR,URINE AMBER (Yellow); GLUCOSE, URINE NEGATIVE (Neg); KETONES,URINE NEGATIVE (Neg); LEUKOCYTE ESTERASE ,URINE TRACE (Neg); NITRITES, URINE POSITIVE (Neg); OCCULT BLOOD,URINE TRACE-INTACT (Neg); PROTEIN,URINE 30 mg/dl (Neg); UROBILINOGEN,URINE >=8.0 E.U/dL (0.2-1.0)
[2019-07-13 14:12] LABS: UA COLLECTION TYPE CLN CATCH MIDSTREAM
[2019-07-13 14:16] LABS: MUCUS STRANDS MANY /LPF (Neg); SQUAMOUS EPITHELIAL CELL,UR FEW /LPF (FEW); TRANSITIONAL EPI CELLS,URINE MODERATE /HPF
[2019-07-13 14:17] LABS: RENAL CELLS, URINE FEW /HPF
[2019-07-13 14:24] LABS: BACTERIA,URINE 4+ /HPF (Neg)
[2019-07-13] MEDS ORDERED: LIDOcaine 1% w/EPI 1:200,000 injection 10mL vial IM ONE (14:30)
[2019-07-13] MEDS ORDERED: LIDOcaine 1% W/epiNEPHrine 1:200,000 10ml vial IJ ONE (14:35)
[2019-07-13] MEDS ORDERED: LIDOcaine 1% W/epiNEPHrine 1:200,000 10ml vial SQ ONE (14:35)
--- NOTE | 2019-07-13 14:46 | NUR ---
SPECIMEN OF SINOVIAL FLUID FROM RIGHT KNEE COLLECTED BY DR VEGA, PROVIDED CAP FOR SYRINGE, LABELED AND SENT SAMPLE TO LAB
[2019-07-13 15:41] LABS: GLUCOSE,SYNOVIAL FLUID 6 MG/DL
[2019-07-13 15:56] LABS: APPEARANCE,SYNOVIAL FLUID CLOUDY; COLOR,SYNOVIAL FLUID OTHER; SYN WBC 188000 /CU MM (0-200)
[2019-07-13 15:57] LABS: SYN RBC 16750 /CU MM (0); SYNOVIAL FLUID CRYSTALS QT NO CRYSTALS SEEN
[2019-07-13 16:00] LABS: LYMPHOCYTES,SYNOVIAL FLUID 5 % (0-75); MONOCYTES,SYNOVIAL FLUID 9 % (0-0); NEUTROPHILS,SYNOVIAL FLUID 86 % (0-25)
--- NOTE | 2019-07-13 16:31 | NUR ---
PATIENT HAS BEEN ACCEPTED TO [facility]. ACCEPTING HOSPITALIST DR. PIERRE. AWAITING A BED ASSIGNMENT.
--- NOTE | 2019-07-13 18:42 | NUR ---
CALLED [facility] AT 18:40 FOR TRANSPOT TO [facility]. NOT AT LVL WILL CALL BACK WITH ETA
[2019-07-13] MEDS ORDERED: morphine 4 MG/ML inj SYRINge IV ONE (19:00)
--- NOTE | 2019-07-13 19:03 | NUR ---
PT C/O PAIN7/10 MEDICATED WITH 4MG MSO4 PRIOR TO TRANSPORTATION TO [facility].
--- NOTE | 2019-07-13 19:08 | NUR ---
REPORT CALLED TO [facility] TO [facility] TO TRANSPORT PT VIA [facility]
--- NOTE | 2019-07-13 19:12 | NUR ---
EMS OFF FLOOR WITH PT IN ROUTE TO [facility]
[2019-07-13 23:22] VITALS: BP 122/80
== END 2019-07-13 19:12 | disposition short-term general hospital (02) ==
LOC: ER 11:00
DX: M00.9 Pyogenic arthritis, unspecified (principal); M25.461 Effusion, right knee; I10 Essential (primary) hypertension; Z79.899 Other long term (current) drug therapy; Z96.651 Presence of right artificial knee joint; W18.30XA Fall on same level, unspecified, initial encounter; Y93.01 Activity, walking, marching and hiking; Y92.89 Other specified places as the place of occurrence of the external cause; Y99.9 Unspecified external cause status
CPT/HCPCS: 20610; 36415; 71045; 73564; 80053; 81001; 82945; 83605; 83735; 84145; 84157; 85025; 85610; 85730; 87040; 87070; 87075; 87077; 87088; 87186; 89051; 89060; 93005; 96365; 96366; 96368; 96375; 99285; J0696; J2270; J3370; J7030

== ENCOUNTER 2019-08-02 09:31 | Outpatient (CLI) | payer MEDICAID | END 2019-08-02 23:59 | disposition home or self-care (01) | LOC: RAD 09:31 | PROVIDERS: ATTEND Specialist | DX: M25.561 Pain in right knee (principal); M79.89 Other specified soft tissue disorders; A41.9 Sepsis, unspecified organism; Z96.651 Presence of right artificial knee joint | CPT/HCPCS: 78320; A9503 ==

== ENCOUNTER 2020-02-09 09:00 | Day surgery (SDC) | payer MEDICAID ==
[2020-02-09] MEDS ORDERED: LIDOcaine 2% 5ml jelly ONE (10:01)
[2020-02-09 10:48] LABS: ALANINE AMINOTRANSFERASE 40 U/L (12-78); ALBUMIN 3.2 G/DL (3.4-5.0); ALBUMIN/GLOBULIN RATIO 0.8 (1.1-1.5); ALKALINE PHOSPHATASE 104 IU/L (46-116); ANION GAP 7 (8-16); ASPARTATE AMINO TRANSFERASE 72 U/L (10-37); BILIRUBIN,TOTAL 0.8 MG/DL (0.1-1.0); BLOOD UREA NITROGEN 6 MG/DL (7-18); BUN/CREATININE RATIO 10.3 (6.6-38.0); C-REACTIVE PROTEIN 1.29 MG/DL (0.0-0.5); CALCIUM 8.5 MG/DL (8.5-10.1); CHLORIDE 103 MMOL/L (99-107); CREATININE 0.58 MG/DL (0.40-0.90); GLUCOSE 92 MG/DL (70-104); POTASSIUM 3.4 MMOL/L (3.5-5.1); SODIUM 140 MMOL/L (135-145); TOTAL CARBON DIOXIDE 30.4 MMOL/L (24-32); TOTAL PROTEIN 7.3 G/DL (6.4-8.2); eGFR > 90 ML/MIN
[2020-02-09 10:49] LABS: HEMOGLOBIN A1C 5.3 % (4.5-6.2)
[2020-02-09 11:24] LABS: BASOPHILS # (AUTO) 0.1 X10'3 (0-0.2); EOSINOPHILS # (AUTO) 0.3 X10'3 (0-0.9); HEMATOCRIT 37.9 % (35.0-45.0); HEMOGLOBIN 13.6 g/dl (12.0-16.0); LYMPHOCYTES # (AUTO) 2.2 X10'3 (1.1-4.8); LYMPHOCYTES % (AUTO) 33.1 % (21-51); MEAN CORPUSCULAR HEMOGLOBIN 34.4 PG (27.0-31.0); MEAN CORPUSCULAR HGB CONC 35.8 g/dL (33.0-36.5); MEAN CORPUSCULAR VOLUME 95.9 FL (78-98); MEAN PLATELET VOLUME 9.2 FL (7.4-10.4); MONOCYTES # (AUTO) 0.7 X10'3 (0-0.9); MONOCYTES % (AUTO) 9.9 % (2-12); NEUTROPHILS # (AUTO) 3.5 X10'3 (1.8-7.7); PLATELET COUNT 97 X10'3 (140-440); RED BLOOD COUNT 3.95 X10'6 (4.20-5.60); RED CELL DISTRIBUTION WIDTH 17.1 % (11.5-14.5); WHITE BLOOD COUNT 6.7 X10'3 (4.5-11.0)
[2020-02-09 11:41] LABS: PLATELET ESTIMATE DECREASED
[2020-02-09 11:42] LABS: ANISOCYTOSIS 1+
== END 2020-02-09 10:47 | disposition home or self-care (01) ==
LOC: WOUND CARE 09:00
PROVIDERS: ATTEND Nurse Practitioner
DX: E11.621 Type 2 diabetes mellitus with foot ulcer (principal); L97.512 Non-pressure chronic ulcer of other part of right foot with fat layer exposed; L84 Corns and callosities; E11.69 Type 2 diabetes mellitus with other specified complication; M86.9 Osteomyelitis, unspecified; E11.42 Type 2 diabetes mellitus with diabetic polyneuropathy; I10 Essential (primary) hypertension; I89.0 Lymphedema, not elsewhere classified; I87.2 Venous insufficiency (chronic) (peripheral); G90.09 Other idiopathic peripheral autonomic neuropathy; M19.90 Unspecified osteoarthritis, unspecified site; E03.9 Hypothyroidism, unspecified; F41.9 Anxiety disorder, unspecified; Z79.82 Long term (current) use of aspirin
CPT/HCPCS: 36415; 36416; 73630; 80053; 82948; 83036; 85025; 85651; 86140; 97597

== ENCOUNTER 2020-02-16 08:00 | Outpatient (CLI) | payer MEDICAID | END 2020-02-16 11:45 | disposition home or self-care (01) | LOC: WOUND CARE 08:00 → EDSTATUS 08:40 → WOUND CARE 11:45 | PROVIDERS: ATTEND Nurse Practitioner | DX: E11.621 Type 2 diabetes mellitus with foot ulcer (principal); L97.512 Non-pressure chronic ulcer of other part of right foot with fat layer exposed; L84 Corns and callosities; E11.69 Type 2 diabetes mellitus with other specified complication; M86.9 Osteomyelitis, unspecified; E11.42 Type 2 diabetes mellitus with diabetic polyneuropathy; I10 Essential (primary) hypertension; I89.0 Lymphedema, not elsewhere classified; I87.2 Venous insufficiency (chronic) (peripheral); G90.09 Other idiopathic peripheral autonomic neuropathy; M19.90 Unspecified osteoarthritis, unspecified site; E03.9 Hypothyroidism, unspecified; F41.9 Anxiety disorder, unspecified; Z79.82 Long term (current) use of aspirin | CPT/HCPCS: 93922; 93925; 93970; G0463 ==

== ENCOUNTER 2020-02-19 08:56 | Day surgery (SDC) | payer MEDICAID | END 2020-02-19 10:45 | disposition home or self-care (01) | LOC: WOUND CARE 08:56 | PROVIDERS: ATTEND Nurse Practitioner Family | DX: E11.621 Type 2 diabetes mellitus with foot ulcer (principal); L97.512 Non-pressure chronic ulcer of other part of right foot with fat layer exposed; L84 Corns and callosities; E11.69 Type 2 diabetes mellitus with other specified complication; M86.9 Osteomyelitis, unspecified; E11.42 Type 2 diabetes mellitus with diabetic polyneuropathy; I10 Essential (primary) hypertension; I89.0 Lymphedema, not elsewhere classified; I87.2 Venous insufficiency (chronic) (peripheral); G90.09 Other idiopathic peripheral autonomic neuropathy; M19.90 Unspecified osteoarthritis, unspecified site; E03.9 Hypothyroidism, unspecified; F41.9 Anxiety disorder, unspecified; Z79.82 Long term (current) use of aspirin | CPT/HCPCS: 73718; 97597 ==

== ENCOUNTER 2020-03-01 08:40 | Day surgery (SDC) | payer MEDICAID ==
[2020-03-01] MEDS ORDERED: LIDOcaine 2% 5ml jelly ONE (09:01)
== END 2020-03-01 09:22 | disposition home or self-care (01) ==
LOC: WOUND CARE 08:40
PROVIDERS: ATTEND Nurse Practitioner
DX: E11.621 Type 2 diabetes mellitus with foot ulcer (principal); L97.512 Non-pressure chronic ulcer of other part of right foot with fat layer exposed; L84 Corns and callosities; E11.69 Type 2 diabetes mellitus with other specified complication; M86.9 Osteomyelitis, unspecified; E11.42 Type 2 diabetes mellitus with diabetic polyneuropathy; I10 Essential (primary) hypertension; I89.0 Lymphedema, not elsewhere classified; I87.2 Venous insufficiency (chronic) (peripheral); G90.09 Other idiopathic peripheral autonomic neuropathy; M19.90 Unspecified osteoarthritis, unspecified site; E03.9 Hypothyroidism, unspecified; F41.9 Anxiety disorder, unspecified; Z79.82 Long term (current) use of aspirin
CPT/HCPCS: 97597

== ENCOUNTER 2020-03-07 08:40 | Day surgery (SDC) | payer MEDICAID ==
[2020-03-07] MEDS ORDERED: LIDOcaine 2% 5ml jelly ONE (09:00)
== END 2020-03-07 10:10 | disposition home or self-care (01) ==
LOC: WOUND CARE 08:40
PROVIDERS: ATTEND Nurse Practitioner
DX: E11.621 Type 2 diabetes mellitus with foot ulcer (principal); L97.512 Non-pressure chronic ulcer of other part of right foot with fat layer exposed; L84 Corns and callosities; E11.69 Type 2 diabetes mellitus with other specified complication; M86.9 Osteomyelitis, unspecified; E11.42 Type 2 diabetes mellitus with diabetic polyneuropathy; I10 Essential (primary) hypertension; I89.0 Lymphedema, not elsewhere classified; I87.2 Venous insufficiency (chronic) (peripheral); G90.09 Other idiopathic peripheral autonomic neuropathy; M19.90 Unspecified osteoarthritis, unspecified site; E03.9 Hypothyroidism, unspecified; F41.9 Anxiety disorder, unspecified; Z79.82 Long term (current) use of aspirin
CPT/HCPCS: 97597

== ENCOUNTER 2020-03-15 08:30 | Day surgery (SDC) | payer MEDICAID ==
[2020-03-15] MEDS ORDERED: LIDOcaine 2% 5ml jelly ONE (08:48)
== END 2020-03-15 09:27 | disposition home or self-care (01) ==
LOC: WOUND CARE 08:30
PROVIDERS: ATTEND Nurse Practitioner
DX: E11.621 Type 2 diabetes mellitus with foot ulcer (principal); L97.512 Non-pressure chronic ulcer of other part of right foot with fat layer exposed; L84 Corns and callosities; E11.69 Type 2 diabetes mellitus with other specified complication; M86.9 Osteomyelitis, unspecified; E11.42 Type 2 diabetes mellitus with diabetic polyneuropathy; I10 Essential (primary) hypertension; I89.0 Lymphedema, not elsewhere classified; I87.2 Venous insufficiency (chronic) (peripheral); G90.09 Other idiopathic peripheral autonomic neuropathy; M19.90 Unspecified osteoarthritis, unspecified site; E03.9 Hypothyroidism, unspecified; F41.9 Anxiety disorder, unspecified; Z79.82 Long term (current) use of aspirin
CPT/HCPCS: 97597

== ENCOUNTER 2020-03-22 08:18 | Day surgery (SDC) | payer MEDICAID ==
[2020-03-22] MEDS ORDERED: LIDOcaine 2% 5ml jelly ONE (08:41)
== END 2020-03-22 09:20 | disposition home or self-care (01) ==
LOC: WOUND CARE 08:18
PROVIDERS: ATTEND Nurse Practitioner
DX: E11.621 Type 2 diabetes mellitus with foot ulcer (principal); L97.512 Non-pressure chronic ulcer of other part of right foot with fat layer exposed; L84 Corns and callosities; E11.69 Type 2 diabetes mellitus with other specified complication; M86.9 Osteomyelitis, unspecified; E11.42 Type 2 diabetes mellitus with diabetic polyneuropathy; I10 Essential (primary) hypertension; I89.0 Lymphedema, not elsewhere classified; I87.2 Venous insufficiency (chronic) (peripheral); G90.09 Other idiopathic peripheral autonomic neuropathy; M19.90 Unspecified osteoarthritis, unspecified site; E03.9 Hypothyroidism, unspecified; F41.9 Anxiety disorder, unspecified; Z79.82 Long term (current) use of aspirin
CPT/HCPCS: 36416; 97597

== ENCOUNTER 2020-03-29 08:21 | Day surgery (SDC) | payer MEDICAID ==
[2020-03-29] MEDS ORDERED: LIDOcaine 2% 5ml jelly ONE (08:40)
== END 2020-03-29 09:32 | disposition home or self-care (01) ==
LOC: WOUND CARE 08:21
PROVIDERS: ATTEND Nurse Practitioner
DX: E11.621 Type 2 diabetes mellitus with foot ulcer (principal); L97.512 Non-pressure chronic ulcer of other part of right foot with fat layer exposed; L84 Corns and callosities; E11.69 Type 2 diabetes mellitus with other specified complication; M86.9 Osteomyelitis, unspecified; E11.42 Type 2 diabetes mellitus with diabetic polyneuropathy; I10 Essential (primary) hypertension; I89.0 Lymphedema, not elsewhere classified; I87.2 Venous insufficiency (chronic) (peripheral); G90.09 Other idiopathic peripheral autonomic neuropathy; M19.90 Unspecified osteoarthritis, unspecified site; E03.9 Hypothyroidism, unspecified; F41.9 Anxiety disorder, unspecified; Z79.82 Long term (current) use of aspirin
CPT/HCPCS: 97597

== ENCOUNTER 2020-04-04 08:20 | Day surgery (SDC) | payer MEDICAID ==
[2020-04-04] MEDS ORDERED: LIDOcaine 2% 5ml jelly ONE (08:38)
== END 2020-04-04 09:16 | disposition home or self-care (01) ==
LOC: WOUND CARE 08:20
PROVIDERS: ATTEND Nurse Practitioner
DX: E11.621 Type 2 diabetes mellitus with foot ulcer (principal); L97.512 Non-pressure chronic ulcer of other part of right foot with fat layer exposed; L84 Corns and callosities; E11.69 Type 2 diabetes mellitus with other specified complication; M86.9 Osteomyelitis, unspecified; E11.42 Type 2 diabetes mellitus with diabetic polyneuropathy; I10 Essential (primary) hypertension; I89.0 Lymphedema, not elsewhere classified; I87.2 Venous insufficiency (chronic) (peripheral); G90.09 Other idiopathic peripheral autonomic neuropathy; M19.90 Unspecified osteoarthritis, unspecified site; E03.9 Hypothyroidism, unspecified; F41.9 Anxiety disorder, unspecified; Z79.82 Long term (current) use of aspirin
CPT/HCPCS: 97597

== ENCOUNTER → 2020-04-19 | Outpatient (CLI) | payer MEDICAID | END | disposition home or self-care (01) | LOC: LAB 10:24 | PROVIDERS: ATTEND Internal Medicine Infectious Disease | DX: T84.50XD Infection and inflammatory reaction due to unspecified internal joint prosthesis, subsequent encounter (principal); X58.XXXA Exposure to other specified factors, initial encounter; Y93.89 Activity, other specified; Y92.89 Other specified places as the place of occurrence of the external cause; Y99.8 Other external cause status | CPT/HCPCS: 36415; 85651; 86140 ==

== ENCOUNTER 2020-04-26 08:30 | Day surgery (SDC) | payer MEDICAID ==
[2020-04-26] MEDS ORDERED: LIDOcaine 2% 5ml jelly ONE (09:06)
== END 2020-04-26 09:34 | disposition home or self-care (01) ==
LOC: WOUND CARE 08:30
PROVIDERS: ATTEND Nurse Practitioner
DX: E11.621 Type 2 diabetes mellitus with foot ulcer (principal); L97.512 Non-pressure chronic ulcer of other part of right foot with fat layer exposed; L89.893 Pressure ulcer of other site, stage 3; L97.522 Non-pressure chronic ulcer of other part of left foot with fat layer exposed; L84 Corns and callosities; S90.414D Abrasion, right lesser toe(s), subsequent encounter; E11.69 Type 2 diabetes mellitus with other specified complication; M86.9 Osteomyelitis, unspecified; E11.42 Type 2 diabetes mellitus with diabetic polyneuropathy; I10 Essential (primary) hypertension; I89.0 Lymphedema, not elsewhere classified; I87.2 Venous insufficiency (chronic) (peripheral); G90.09 Other idiopathic peripheral autonomic neuropathy; M19.90 Unspecified osteoarthritis, unspecified site; E03.9 Hypothyroidism, unspecified; F41.9 Anxiety disorder, unspecified; Z79.82 Long term (current) use of aspirin; X58.XXXD Exposure to other specified factors, subsequent encounter
CPT/HCPCS: 97597

== ENCOUNTER 2020-05-01 08:40 | Day surgery (SDC) | payer MEDICAID ==
[2020-05-01] MEDS ORDERED: LIDOcaine 2% 5ml jelly ONE (09:08)
== END 2020-05-02 10:06 | disposition home or self-care (01) ==
LOC: WOUND CARE 08:40
PROVIDERS: ATTEND Nurse Practitioner
DX: S90.411D Abrasion, right great toe, subsequent encounter (principal); E11.621 Type 2 diabetes mellitus with foot ulcer; L97.512 Non-pressure chronic ulcer of other part of right foot with fat layer exposed; G90.09 Other idiopathic peripheral autonomic neuropathy; E11.69 Type 2 diabetes mellitus with other specified complication; M86.8X8 Other osteomyelitis, other site; E03.9 Hypothyroidism, unspecified; M19.90 Unspecified osteoarthritis, unspecified site; I89.0 Lymphedema, not elsewhere classified; I10 Essential (primary) hypertension; I87.2 Venous insufficiency (chronic) (peripheral); F41.9 Anxiety disorder, unspecified; Z79.82 Long term (current) use of aspirin; Z91.040 Latex allergy status; X58.XXXD Exposure to other specified factors, subsequent encounter
CPT/HCPCS: 97597

== ENCOUNTER 2020-05-08 08:30 | Day surgery (SDC) | payer MEDICAID | END 2020-05-08 09:22 | disposition home or self-care (01) | LOC: WOUND CARE 08:30 | PROVIDERS: ATTEND Nurse Practitioner | DX: E11.621 Type 2 diabetes mellitus with foot ulcer (principal); L97.512 Non-pressure chronic ulcer of other part of right foot with fat layer exposed; L89.893 Pressure ulcer of other site, stage 3; L97.522 Non-pressure chronic ulcer of other part of left foot with fat layer exposed; L84 Corns and callosities; E11.69 Type 2 diabetes mellitus with other specified complication; M86.9 Osteomyelitis, unspecified; E11.42 Type 2 diabetes mellitus with diabetic polyneuropathy; I10 Essential (primary) hypertension; I89.0 Lymphedema, not elsewhere classified; I87.2 Venous insufficiency (chronic) (peripheral); G90.09 Other idiopathic peripheral autonomic neuropathy; M19.90 Unspecified osteoarthritis, unspecified site; E03.9 Hypothyroidism, unspecified; F41.9 Anxiety disorder, unspecified; Z79.82 Long term (current) use of aspirin | CPT/HCPCS: 87070; 87075; 87102; 97597 ==

== ENCOUNTER 2020-05-15 08:45 | Day surgery (SDC) | payer MEDICAID ==
[~2020-05-15 08:45] MED LIST changes: +LIDOcaine 2% 5ml jelly ONE
== END 2020-05-15 09:10 | disposition home or self-care (01) ==
LOC: WOUND CARE 08:45
PROVIDERS: ATTEND Nurse Practitioner
DX: S90.414D Abrasion, right lesser toe(s), subsequent encounter (principal); S91.105D Unspecified open wound of left lesser toe(s) without damage to nail, subsequent encounter; E11.621 Type 2 diabetes mellitus with foot ulcer; L97.512 Non-pressure chronic ulcer of other part of right foot with fat layer exposed; L97.522 Non-pressure chronic ulcer of other part of left foot with fat layer exposed; L84 Corns and callosities; E11.69 Type 2 diabetes mellitus with other specified complication; E11.42 Type 2 diabetes mellitus with diabetic polyneuropathy; E03.9 Hypothyroidism, unspecified; I10 Essential (primary) hypertension; I89.0 Lymphedema, not elsewhere classified; I87.2 Venous insufficiency (chronic) (peripheral); G90.09 Other idiopathic peripheral autonomic neuropathy; M86.9 Osteomyelitis, unspecified; M19.90 Unspecified osteoarthritis, unspecified site; F41.9 Anxiety disorder, unspecified; Z79.82 Long term (current) use of aspirin; X58.XXXD Exposure to other specified factors, subsequent encounter
CPT/HCPCS: 97597

== ENCOUNTER 2020-05-23 11:37 | Day surgery (SDC) | payer MEDICAID ==
[~2020-05-23 11:37] MED LIST changes: -LIDOcaine 2% 5ml jelly ONE
[2020-05-23] MEDS ORDERED: LIDOcaine 2% 5ml jelly ONE (12:17)
== END 2020-05-23 13:20 | disposition home or self-care (01) ==
LOC: WOUND CARE 11:37
PROVIDERS: ATTEND Nurse Practitioner
DX: E11.621 Type 2 diabetes mellitus with foot ulcer (principal); L97.512 Non-pressure chronic ulcer of other part of right foot with fat layer exposed; L89.893 Pressure ulcer of other site, stage 3; L97.522 Non-pressure chronic ulcer of other part of left foot with fat layer exposed; L84 Corns and callosities; E11.69 Type 2 diabetes mellitus with other specified complication; M86.9 Osteomyelitis, unspecified; E11.42 Type 2 diabetes mellitus with diabetic polyneuropathy; I10 Essential (primary) hypertension; I89.0 Lymphedema, not elsewhere classified; I87.2 Venous insufficiency (chronic) (peripheral); G90.09 Other idiopathic peripheral autonomic neuropathy; M19.90 Unspecified osteoarthritis, unspecified site; E03.9 Hypothyroidism, unspecified; F41.9 Anxiety disorder, unspecified; Z79.82 Long term (current) use of aspirin
CPT/HCPCS: 97597

== ENCOUNTER 2020-06-05 08:29 | Day surgery (SDC) | payer MEDICAID ==
[~2020-06-05 08:29] MED LIST changes: +POTA20TA19 PO
[2020-06-05] MEDS ORDERED: LIDOcaine 2% 5ml jelly ONE (08:52)
== END 2020-06-05 09:33 | disposition home or self-care (01) ==
LOC: WOUND CARE 08:29
PROVIDERS: ATTEND Nurse Practitioner
DX: S91.105D Unspecified open wound of left lesser toe(s) without damage to nail, subsequent encounter (principal); S90.414D Abrasion, right lesser toe(s), subsequent encounter; E11.621 Type 2 diabetes mellitus with foot ulcer; L97.512 Non-pressure chronic ulcer of other part of right foot with fat layer exposed; L97.522 Non-pressure chronic ulcer of other part of left foot with fat layer exposed; L84 Corns and callosities; E11.69 Type 2 diabetes mellitus with other specified complication; E11.42 Type 2 diabetes mellitus with diabetic polyneuropathy; E03.9 Hypothyroidism, unspecified; I10 Essential (primary) hypertension; I89.0 Lymphedema, not elsewhere classified; I87.2 Venous insufficiency (chronic) (peripheral); G90.09 Other idiopathic peripheral autonomic neuropathy; M86.9 Osteomyelitis, unspecified; M19.90 Unspecified osteoarthritis, unspecified site; F41.9 Anxiety disorder, unspecified; Z79.82 Long term (current) use of aspirin; X58.XXXD Exposure to other specified factors, subsequent encounter
CPT/HCPCS: 97597

== ENCOUNTER 2022-05-14 09:38 | Inpatient (IN) | payer MEDICAID ==
[~2022-05-14] VITALS: Ht 175.3 cm; Wt 90.9 kg
[~2022-05-14 09:38] MED LIST changes: -FOLI0.4T2 PO; +FOLI0.4T6 PO; -MYCOL15CR TOP; +NYST15CR37 TOP; -POTA20TA19 PO
[2022-05-14 10:53] LABS: BASOPHILS # (AUTO) 0.1 X10'3 (0-0.2); BASOPHILS % (AUTO) 0.5 % (0-1); EOSINOPHILS # (AUTO) 0.1 X10'3 (0-0.9); EOSINOPHILS % (AUTO) 1.1 % (0-6); HEMATOCRIT 24.8 % (35.0-45.0); HEMOGLOBIN 8.8 g/dl (12.0-16.0); LYMPHOCYTES % (AUTO) 9.7 % (21-51); MEAN CORPUSCULAR HEMOGLOBIN 39.5 PG (27.0-31.0); MEAN CORPUSCULAR HGB CONC 35.4 g/dL (33.0-36.5); MEAN CORPUSCULAR VOLUME 111.5 FL (78-98); MEAN PLATELET VOLUME 8.6 FL (7.4-10.4); MONOCYTES # (AUTO) 0.5 X10'3 (0-0.9); MONOCYTES % (AUTO) 4.6 % (2-12); NEUTROPHILS # (AUTO) 8.8 X10'3 (1.8-7.7); NEUTROPHILS % (AUTO) 84.1 % (42-75); PLATELET COUNT 130 X10'3 (140-440); RED BLOOD COUNT 2.23 X10'6 (4.20-5.60); WHITE BLOOD COUNT 10.4 X10'3 (4.5-11.0)
[2022-05-14 11:02] LABS: ALANINE AMINOTRANSFERASE 98 U/L (12-78); ALKALINE PHOSPHATASE 172 IU/L (46-116); ANION GAP 12 (8-16); BILIRUBIN,TOTAL 19.3 MG/DL (0.1-1.0); BLOOD UREA NITROGEN 21 MG/DL (7-18); CALCIUM 8.4 MG/DL (8.5-10.1); CHLORIDE 91 MMOL/L (99-107); SODIUM 131 MMOL/L (135-145); TOTAL CARBON DIOXIDE 27.9 MMOL/L (24-32); eGFR 38 ML/MIN
[2022-05-14 11:05] LABS: ALBUMIN/GLOBULIN RATIO 0.4 (1.1-1.5); ASPARTATE AMINO TRANSFERASE 380 U/L (10-37); GLUCOSE 96 MG/DL (70-104); POTASSIUM 3.7 MMOL/L (3.5-5.1)
[2022-05-14 11:07] LABS: LIPASE 138 U/L (73-393)
[2022-05-14 11:52] LABS: ANISOCYTOSIS 1+; PLATELET ESTIMATE DECREASED
[2022-05-14 12:13] LABS: CLARITY,URINE CLOUDY (Clear); COLOR,URINE Brown (Yellow)
[2022-05-14 12:16] LABS: UA COLLECTION TYPE CLN CATCH MIDSTREAM
[2022-05-14 12:35] LABS: SQUAMOUS EPITHELIAL CELL,UR MANY /LPF (FEW)
[2022-05-14 12:36] LABS: BACTERIA,URINE 2+ /HPF (Neg)
[2022-05-14 12:42] LABS: AMORPHOUS PHOSPHATES 3+
[2022-05-14 12:47] LABS: MUCUS STRANDS NONE SEEN /LPF (Neg)
[2022-05-14 12:49] LABS: RBC,URINE NONE SEEN /HPF (0-2)
[2022-05-14 12:50] LABS: FINE GRANULAR CAST 0-3 /LPF (NEGATIVE); HYALINE CASTS 0-3 /LPF (NEGATIVE)
[2022-05-14] MEDS ORDERED: normal saline 1000ml 1,000 ML IV ONE (13:15)
[2022-05-14 13:47] LABS: APTT 62 SECONDS (22-32)
[2022-05-14] MEDS ORDERED: human prothrombin complex-PCC 500 UNIT/20 ML VIAL IV ONE (14:25)
[2022-05-14] MEDS: pantoprazole 40MG/NS 100ML BAG 100 ML IV SCH ×3 (14:57→20:45)
[2022-05-14] MEDS ORDERED: human prothrombin complex-PCC 120 ML IV ONE (15:00)
[2022-05-14] MEDS ORDERED: octreotide inj. 1,250 MCG in normal saline 250ml IV soln 250 ML IV ONE (15:00)
[2022-05-14] MEDS ORDERED: octreotide inj. 1,250 MCG in normal saline 250ml IV soln 243.75 ML IV ONE (15:00)
[2022-05-14] MEDS ORDERED: METO-395 PO (15:32)
[2022-05-14] MEDS ORDERED: ROPI0.5T4 PO (15:32)
[2022-05-14] MEDS ORDERED: CHOL400T PO (15:32)
[2022-05-14] MEDS ORDERED: CETI10TA14 PO (15:32)
[2022-05-14] MEDS ORDERED: FOLI1TAB27 PO (15:32)
[2022-05-14] MEDS ORDERED: SULF1TAB45 PO (15:32)
[2022-05-14] MEDS ORDERED: RIVA20TA PO (15:32)
[2022-05-14 15:43] LABS: OCCULT BLOOD STOOL POSITIVE (Neg)
[2022-05-14] MEDS ORDERED: normal saline 1000ml 1,000 ML IV SCH (16:25)
[2022-05-14] MEDS ORDERED: potassium CL 10mEq/100ml bag 100 ML IV PRN (16:25)
[2022-05-14] MEDS ORDERED: magnesium Cl slow-release 64mg tablet PO PRN (16:25)
[2022-05-14] MEDS ORDERED: POTASSIUM BICARB 20meq eff tab 20 MEQ TABLET.EFF PO PRN ×2 (16:25)
[2022-05-14] MEDS ORDERED: magnesium 2GM in 50ml NS 50 ML IV PRN (16:25)
[2022-05-14] MEDS ORDERED: mag hydrox/Alum hydrox/simeth 30ml oral suspension PO PRN (16:25)
[2022-05-14] MEDS ORDERED: magnesium hydroxide 30ml (MOM) UD suspension PO PRN (16:25)
[2022-05-14] MEDS ORDERED: ondansetron/PF 4mg/2ml inj IV PRN (16:25)
[2022-05-14] MEDS ORDERED: acetaminophen 325mg tablet PO PRN (16:25)
[2022-05-14 16:55] LABS: MAGNESIUM 1.4 MG/DL (1.5-2.4)
[2022-05-14] MEDS: CefTRIAXone/D5W-Rocephin 1gm 50 ML IV SCH (18:09)
--- NOTE | 2022-05-14 18:12 | NUR ---
PAGE SENT TO DR GARRETT FOR BP 80/50. PAT ASYMPTOMATIC AT THIS TIME.
--- NOTE | 2022-05-14 18:18 | NUR ---
SPOKE WITH DR GARRETT VIA TELEPHONE, PER MD INCREASE MAINTENENCE IVF TO 70 ML/HR.
[2022-05-14] MEDS: normal saline 1000ml 1,000 ML IV SCH (18:20)
[2022-05-14 19:20] LABS: HEMATOCRIT 22.7 % (35.0-45.0); HEMOGLOBIN 7.9 g/dl (12.0-16.0); MEAN CORPUSCULAR HEMOGLOBIN 39.3 PG (27.0-31.0); MEAN CORPUSCULAR HGB CONC 34.9 g/dL (33.0-36.5); MEAN CORPUSCULAR VOLUME 112.5 FL (78-98); MEAN PLATELET VOLUME 8.7 FL (7.4-10.4); PLATELET COUNT 69 X10'3 (140-440); RED BLOOD COUNT 2.02 X10'6 (4.20-5.60); RED CELL DISTRIBUTION WIDTH 18.3 % (11.5-14.5)
[2022-05-14] MEDS: docusate sod 100mg capsule PO SCH (20:00)
[2022-05-14] MEDS: ROPINIRole 0.25mg tablet PO SCH (21:00)
[2022-05-14 21:20] LABS: MAGNESIUM 1.4 MG/DL (1.5-2.4)
[2022-05-14 21:22] LABS: POTASSIUM 3.9 MMOL/L (3.5-5.1)
[2022-05-14] MEDS: K and/or MAG REPLACEMENT MC SCH (21:26)
[2022-05-14 22:55] LABS: HEMOGLOBIN 7.6 g/dl (12.0-16.0); MEAN CORPUSCULAR HEMOGLOBIN 38.8 PG (27.0-31.0); MEAN CORPUSCULAR HGB CONC 35.2 g/dL (33.0-36.5); MEAN CORPUSCULAR VOLUME 110.2 FL (78-98); MEAN PLATELET VOLUME 8.7 FL (7.4-10.4); PLATELET COUNT 77 X10'3 (140-440); RED BLOOD COUNT 1.95 X10'6 (4.20-5.60); RED CELL DISTRIBUTION WIDTH 18.2 % (11.5-14.5)
[2022-05-14 23:00] LABS: HEMATOCRIT 21.5 % (35.0-45.0)
[2022-05-14] MEDS: magnesium 4gm in 100ml NS 100 ML IV PRN ×2 (23:35→23:36)
[2022-05-15] VITALS (9 sets, daily range): BP systolic 79–116; BP diastolic 45–81
[2022-05-15] MEDS: pantoprazole 40MG/NS 100ML BAG 100 ML IV SCH ×5 (01:33→21:45)
[2022-05-15] MEDS ORDERED: AMOX-100 PO (06:56)
--- NOTE | 2022-05-15 06:57 | NUR ---
pt said she is on a new heart med "I am not sure of the name", friend will bring meds in when she visits
[2022-05-15] MEDS: normal saline 1000ml 1,000 ML IV SCH (07:32)
[2022-05-15] MEDS: cetirizine 10mg tablet PO SCH (07:38)
[2022-05-15] MEDS: docusate sod 100mg capsule PO SCH ×2 (07:38→19:42)
[2022-05-15] MEDS: CefTRIAXone/D5W-Rocephin 1gm 50 ML IV SCH (07:38)
[2022-05-15] MEDS: metoprolol succinate 25mg (24-HOUR) SR. Tablet PO SCH (07:39)
[2022-05-15] MEDS: folic acid 1mg tablet PO SCH (07:39)
[2022-05-15] MEDS: K and/or MAG REPLACEMENT MC SCH ×2 (07:42→19:28)
[2022-05-15 08:41] LABS: BASOPHILS # (AUTO) 0.1 X10'3 (0-0.2); BASOPHILS % (AUTO) 0.6 % (0-1); EOSINOPHILS # (AUTO) 0.1 X10'3 (0-0.9); EOSINOPHILS % (AUTO) 1.1 % (0-6); HEMOGLOBIN 8.1 g/dl (12.0-16.0); LYMPHOCYTES # (AUTO) 0.7 X10'3 (1.1-4.8); LYMPHOCYTES % (AUTO) 9.1 % (21-51); MEAN CORPUSCULAR HEMOGLOBIN 39.4 PG (27.0-31.0); MEAN CORPUSCULAR HGB CONC 35.1 g/dL (33.0-36.5); MONOCYTES # (AUTO) 0.3 X10'3 (0-0.9); MONOCYTES % (AUTO) 4.2 % (2-12); NEUTROPHILS # (AUTO) 6.9 X10'3 (1.8-7.7); PLATELET COUNT 92 X10'3 (140-440); RED BLOOD COUNT 2.06 X10'6 (4.20-5.60); WHITE BLOOD COUNT 8.2 X10'3 (4.5-11.0)
[2022-05-15 09:07] LABS: ALANINE AMINOTRANSFERASE 92 U/L (12-78); ALBUMIN 1.9 G/DL (3.4-5.0); ALKALINE PHOSPHATASE 149 IU/L (46-116); ANION GAP 11 (8-16); BILIRUBIN,TOTAL 20.6 MG/DL (0.1-1.0); BLOOD UREA NITROGEN 23 MG/DL (7-18); CALCIUM 7.5 MG/DL (8.5-10.1); CHLORIDE 94 MMOL/L (99-107); MAGNESIUM 2.6 MG/DL (1.5-2.4); SODIUM 130 MMOL/L (135-145); TOTAL CARBON DIOXIDE 25.5 MMOL/L (24-32)
[2022-05-15 09:08] LABS: ALBUMIN/GLOBULIN RATIO 0.4 (1.1-1.5); ASPARTATE AMINO TRANSFERASE 356 U/L (10-37); CREATININE 0.96 MG/DL (0.40-0.90); GLUCOSE 98 MG/DL (70-104); POTASSIUM 3.8 MMOL/L (3.5-5.1); TOTAL PROTEIN 6.3 G/DL (6.4-8.2); eGFR 59 ML/MIN
[2022-05-15 09:17] LABS: ANISOCYTOSIS 1+; HYPOCHROMASIA 1+; PLATELET ESTIMATE DECREASED; POLYCHROMASIA 1+; STOMATOCYTES 1+
--- NOTE | 2022-05-15 09:32 | NUR ---
dr. solis at bedside, aware of BP. Blood consent signed.
--- NOTE | 2022-05-15 10:56 | NUR ---
Nannette ok to give information to per patient.
[2022-05-15 10:57] LABS: HEMATOCRIT 22.1 % (35.0-45.0); HEMOGLOBIN 7.7 g/dl (12.0-16.0); MEAN CORPUSCULAR HEMOGLOBIN 38.7 PG (27.0-31.0); MEAN CORPUSCULAR HGB CONC 34.7 g/dL (33.0-36.5); MEAN CORPUSCULAR VOLUME 111.7 FL (78-98); MEAN PLATELET VOLUME 8.9 FL (7.4-10.4); PLATELET COUNT 80 X10'3 (140-440); RED BLOOD COUNT 1.98 X10'6 (4.20-5.60); RED CELL DISTRIBUTION WIDTH 18.2 % (11.5-14.5); WHITE BLOOD COUNT 7.1 X10'3 (4.5-11.0)
--- NOTE | 2022-05-15 12:15 | NUR ---
dr. solis updated on SBP of 79. SBP running in 80s. Pt asymptomatic. aware. Orders to call if patient becomes symtomatic.
[2022-05-15] MEDS ORDERED: MIDAZolam 1 MG/ML 5ML VIAL ONE (15:51)
[2022-05-15] MEDS ORDERED: LIDOcaine Viscous 15ml cup ONE (15:51)
[2022-05-15] MEDS ORDERED: fentaNYL/PF 50MCG/1 ML 2ML syringe ONE (15:51)
--- NOTE | 2022-05-15 17:31 | NUR ---
Pt. in GI lab while blood transfusion completed, unable to obtain 1555 and ending vital signs.
--- NOTE | 2022-05-15 18:07 | NUR ---
Problems reprioritized. Patient report given, questions answered & plan of care reviewed with Prudence RN.
--- NOTE | 2022-05-15 18:09 | NUR ---
Patient in room PCU 3019. I have received report from ANNELISE OREILYL and had the opportunity to ask questions and assume patient care.
[2022-05-15 21:29] LABS: HEMATOCRIT 26.5 % (35.0-45.0); HEMOGLOBIN 9.1 g/dl (12.0-16.0); MEAN CORPUSCULAR HEMOGLOBIN 37.3 PG (27.0-31.0); MEAN CORPUSCULAR HGB CONC 34.3 g/dL (33.0-36.5); MEAN CORPUSCULAR VOLUME 108.9 FL (78-98); MEAN PLATELET VOLUME 8.8 FL (7.4-10.4); PLATELET COUNT 83 X10'3 (140-440); RED BLOOD COUNT 2.43 X10'6 (4.20-5.60); RED CELL DISTRIBUTION WIDTH 22.2 % (11.5-14.5); WHITE BLOOD COUNT 7.4 X10'3 (4.5-11.0)
[2022-05-15] MEDS: ROPINIRole 0.25mg tablet PO SCH (21:45)
[2022-05-16] MEDS: pantoprazole 40MG/NS 100ML BAG 100 ML IV SCH ×4 (01:29→10:04)
[2022-05-16] MEDS: normal saline 1000ml 1,000 ML IV SCH (01:29)
[2022-05-16 02:00] VITALS: BP 94/73
--- NOTE | 2022-05-16 06:45 | NUR ---
Problems reprioritized. Patient report given, questions answered & plan of care reviewed with AGATHA OREILLY.
[2022-05-16 07:10] LABS: BASOPHILS % (AUTO) 0.7 % (0-1); EOSINOPHILS # (AUTO) 0.1 X10'3 (0-0.9); EOSINOPHILS % (AUTO) 2.4 % (0-6); HEMATOCRIT 23.6 % (35.0-45.0); HEMOGLOBIN 8.3 g/dl (12.0-16.0); LYMPHOCYTES # (AUTO) 0.7 X10'3 (1.1-4.8); MEAN CORPUSCULAR HEMOGLOBIN 37.7 PG (27.0-31.0); MEAN CORPUSCULAR HGB CONC 35.2 g/dL (33.0-36.5); MEAN CORPUSCULAR VOLUME 107.2 FL (78-98); MEAN PLATELET VOLUME 8.6 FL (7.4-10.4); MONOCYTES # (AUTO) 0.2 X10'3 (0-0.9); MONOCYTES % (AUTO) 3.2 % (2-12); NEUTROPHILS % (AUTO) 79.7 % (42-75); PLATELET COUNT 69 X10'3 (140-440); RED CELL DISTRIBUTION WIDTH 21.9 % (11.5-14.5)
[2022-05-16 07:19] LABS: ALANINE AMINOTRANSFERASE 90 U/L (12-78); ALBUMIN 1.8 G/DL (3.4-5.0); ALKALINE PHOSPHATASE 133 IU/L (46-116); ANION GAP 8 (8-16); BILIRUBIN,TOTAL 21.3 MG/DL (0.1-1.0); BLOOD UREA NITROGEN 25 MG/DL (7-18); CALCIUM 7.4 MG/DL (8.5-10.1); CHLORIDE 96 MMOL/L (99-107); MAGNESIUM 2.2 MG/DL (1.5-2.4); SODIUM 129 MMOL/L (135-145); TOTAL CARBON DIOXIDE 25.4 MMOL/L (24-32)
[2022-05-16 07:23] LABS: ALBUMIN/GLOBULIN RATIO 0.5 (1.1-1.5); ASPARTATE AMINO TRANSFERASE 312 U/L (10-37); BUN/CREATININE RATIO 25.8 (6.6-38.0); CREATININE 0.97 MG/DL (0.40-0.90); GLUCOSE 124 MG/DL (70-104); POTASSIUM 3.8 MMOL/L (3.5-5.1); TOTAL PROTEIN 5.8 G/DL (6.4-8.2); eGFR 59 ML/MIN
[2022-05-16] MEDS: K and/or MAG REPLACEMENT MC SCH (08:00)
[2022-05-16] MEDS: CefTRIAXone/D5W-Rocephin 1gm 50 ML IV SCH (08:00)
[2022-05-16] MEDS: docusate sod 100mg capsule PO SCH (10:02)
[2022-05-16] MEDS: cetirizine 10mg tablet PO SCH (10:02)
[2022-05-16] MEDS: metoprolol succinate 25mg (24-HOUR) SR. Tablet PO SCH (10:02)
[2022-05-16] MEDS: folic acid 1mg tablet PO SCH (10:02)
[2022-05-16 10:45] LABS: HEMATOCRIT 22.8 % (35.0-45.0); MEAN CORPUSCULAR HEMOGLOBIN 37.1 PG (27.0-31.0); MEAN CORPUSCULAR HGB CONC 34.9 g/dL (33.0-36.5); MEAN CORPUSCULAR VOLUME 106.4 FL (78-98); MEAN PLATELET VOLUME 8.5 FL (7.4-10.4); PLATELET COUNT 80 X10'3 (140-440); RED BLOOD COUNT 2.14 X10'6 (4.20-5.60); RED CELL DISTRIBUTION WIDTH 21.9 % (11.5-14.5); WHITE BLOOD COUNT 5.7 X10'3 (4.5-11.0)
--- NOTE | 2022-05-16 15:28 | NUR ---
Discharged to family: Alcohol Abstinence is discussed with Pt. Its benefits and potential for better health. 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 Suggestions for successful rehabilitation are discussed with Pt. and family after receiving the patients consent to discuss healthy life style changes.
== END 2022-05-16 15:14 | disposition home or self-care (01) | DRG 254 ==
LOC: ER 09:39 → ED HOLD 16:25 → UNDOADMIN 16:25 → ED HOLD 16:28 → PCU 3S 05-15 13:53
PROVIDERS: ADMIT Family Medicine; ATTEND Family Medicine
PROC: 30233N1 Transfusion of Nonautologous Red Blood Cells into Peripheral Vein, Percutaneous Approach (ICD-10-PCS; principal; 2022-05-15)
PROC: 0DB68ZX Excision of Stomach, Via Natural or Artificial Opening Endoscopic, Diagnostic (ICD-10-PCS; 2022-05-15)
DX: K64.9 Unspecified hemorrhoids (principal); K70.31 Alcoholic cirrhosis of liver with ascites; K72.10 Chronic hepatic failure without coma; I95.89 Other hypotension; K29.21 Alcoholic gastritis with bleeding; D62 Acute posthemorrhagic anemia; Z66 Do not resuscitate; Z60.2 Problems related to living alone; R31.9 Hematuria, unspecified; Z20.822 Contact with and (suspected) exposure to COVID-19; F10.20 Alcohol dependence, uncomplicated; I10 Essential (primary) hypertension; I48.91 Unspecified atrial fibrillation; Z82.5 Family history of asthma and other chronic lower respiratory diseases; Z81.1 Family history of alcohol abuse and dependence; Z80.9 Family history of malignant neoplasm, unspecified
CPT/HCPCS: 36415; 36430; 43239; 71045; 74176; 80053; 81001; 82140; 82272; 83690; 83735; 84132; 84484; 85008; 85025; 85027; 85610; 85730; 86870; 86885; 86900; 86901; 86905; 86922; 87088; 87811; 93005; 96365; 99152; 99285; A4353; A4620; A6449; C9113; G0378; J0696; J2250; J2354; J3010; J3475; J7030; J7040; J7050; J7168; P9016

== ENCOUNTER 2022-05-19 15:15 | Inpatient (IN) | payer MEDICAID ==
[~2022-05-19] VITALS: Ht 175.3 cm; Wt 98.0 kg
[~2022-05-19 15:15] MED LIST changes: +AMOX-100 PO; -CALC260T6 PO; +CETI10TA14 PO; +CHOL400T PO; -FOLI0.4T6 PO; +FOLI1TAB27 PO; -IBUP-2697 PO; -LEVO50TA8 PO; -LORA5SOL; +METO-395 PO; -NYST15CR37 TOP; -OXYB5TAB16 PO; +ROPI0.5T4 PO; +SULF1TAB45 PO; -VIT1TABL83 PO
[2022-05-19 17:00] LABS: BASOPHILS # (AUTO) 0.1 X10'3 (0-0.2); BASOPHILS % (AUTO) 0.5 % (0-1); EOSINOPHILS # (AUTO) 0.2 X10'3 (0-0.9); EOSINOPHILS % (AUTO) 1.6 % (0-6); HEMATOCRIT 23.9 % (35.0-45.0); HEMOGLOBIN 8.4 g/dl (12.0-16.0); LYMPHOCYTES # (AUTO) 1.4 X10'3 (1.1-4.8); LYMPHOCYTES % (AUTO) 13.2 % (21-51); MEAN CORPUSCULAR HEMOGLOBIN 37.4 PG (27.0-31.0); MEAN CORPUSCULAR HGB CONC 35.3 g/dL (33.0-36.5); MEAN CORPUSCULAR VOLUME 105.9 FL (78-98); MEAN PLATELET VOLUME 7.8 FL (7.4-10.4); MONOCYTES # (AUTO) 0.4 X10'3 (0-0.9); MONOCYTES % (AUTO) 3.5 % (2-12); NEUTROPHILS # (AUTO) 8.6 X10'3 (1.8-7.7); NEUTROPHILS % (AUTO) 81.2 % (42-75); PLATELET COUNT 145 X10'3 (140-440); RED BLOOD COUNT 2.25 X10'6 (4.20-5.60); RED CELL DISTRIBUTION WIDTH 21.3 % (11.5-14.5); WHITE BLOOD COUNT 10.6 X10'3 (4.5-11.0)
[2022-05-19 17:13] LABS: APTT 52 SECONDS (22-32)
[2022-05-19 17:16] LABS: ALANINE AMINOTRANSFERASE 109 U/L (12-78); ALBUMIN 1.9 G/DL (3.4-5.0); ALKALINE PHOSPHATASE 153 IU/L (46-116); ANION GAP 7 (8-16); BILIRUBIN,TOTAL 21.3 MG/DL (0.1-1.0); BLOOD UREA NITROGEN 19 MG/DL (7-18); CALCIUM 8.2 MG/DL (8.5-10.1); CHLORIDE 95 MMOL/L (99-107); CREATININE 1.12 MG/DL (0.40-0.90); SODIUM 128 MMOL/L (135-145); TOTAL CARBON DIOXIDE 26.2 MMOL/L (24-32); eGFR 50 ML/MIN
[2022-05-19 17:19] LABS: PLATELET ESTIMATE NORMAL
[2022-05-19 17:20] LABS: ANISOCYTOSIS 3+; POLYCHROMASIA FEW
[2022-05-19 17:21] LABS: POTASSIUM 3.8 MMOL/L (3.5-5.1)
[2022-05-19 17:32] LABS: ASPARTATE AMINO TRANSFERASE 286 U/L (10-37)
[2022-05-19 17:35] LABS: ALBUMIN/GLOBULIN RATIO 0.4 (1.1-1.5); GLUCOSE 94 MG/DL (70-104); TOTAL PROTEIN 6.4 G/DL (6.4-8.2)
[2022-05-19] MEDS ORDERED: pantoprazole 40MG/NS 100ML BAG 100 ML IV ONE (19:10)
[2022-05-19 20:02] LABS: HEMOGLOBIN 8.5 g/dl (12.0-16.0); MEAN CORPUSCULAR HEMOGLOBIN 37.9 PG (27.0-31.0); MEAN CORPUSCULAR HGB CONC 35.5 g/dL (33.0-36.5); MEAN CORPUSCULAR VOLUME 106.7 FL (78-98); MEAN PLATELET VOLUME 7.8 FL (7.4-10.4); PLATELET COUNT 149 X10'3 (140-440); RED BLOOD COUNT 2.25 X10'6 (4.20-5.60); RED CELL DISTRIBUTION WIDTH 21.2 % (11.5-14.5); WHITE BLOOD COUNT 10.5 X10'3 (4.5-11.0)
[2022-05-19] MEDS ORDERED: pantoprazole 40MG/NS 100ML BAG 100 ML IV SCH (21:00)
[2022-05-20] MEDS ORDERED: HYDROmorphone inj. 0.5 MG/0.5 ML DISP.SYRIN IV PRN (00:35)
[2022-05-20] MEDS ORDERED: morphine 2 MG/ML inj. syringe IV PRN ×2 (00:35)
[2022-05-20] MEDS ORDERED: magnesium hydroxide 30ml (MOM) UD suspension PO PRN (00:35)
[2022-05-20] MEDS ORDERED: ondansetron/PF 4mg/2ml inj IV PRN (00:35)
[2022-05-20] MEDS ORDERED: albumin (human) 25% 100ml IV 100 ML IV ONE (00:35)
[2022-05-20] MEDS ORDERED: acetaminophen 325mg tablet PO PRN ×2 (00:35)
[2022-05-20] MEDS ORDERED: HYDROcodone/acetaminophen 10/325mg tab PO PRN (00:35)
[2022-05-20] MEDS ORDERED: acetaminophen 650mg rectal suppository RC PRN (00:35)
[2022-05-20] MEDS ORDERED: diphenhydrAMINE 50 mg/ml inj IV PRN (00:35)
[2022-05-20] MEDS ORDERED: mag hydrox/Alum hydrox/simeth 30ml oral suspension PO PRN (00:35)
[2022-05-20] MEDS ORDERED: diphenhydrAMINE 25mg capsule PO PRN (00:35)
[2022-05-20] MEDS ORDERED: ondansetron 4mg rapidly disintigrating tab PO PRN (00:35)
[2022-05-20] MEDS ORDERED: bisacodyl 10mg suppository rectal RC PRN (00:35)
[2022-05-20] MEDS ORDERED: tranexamic acid 1gm/0.7% sal. 100 ML IV ONE (00:35)
[2022-05-20] MEDS ORDERED: phytonadione inj. 1 MG in normal saline 100ml IV soln 100 ML IV ONE (00:45)
[2022-05-20 01:31] LABS: MAGNESIUM 1.8 MG/DL (1.5-2.4)
[2022-05-20] MEDS: normal saline 1000ml 1,000 ML IV SCH ×3 (01:32→10:35)
[2022-05-20 01:33] LABS: CREATINE KINASE 55 U/L (26-192); PHOSPHORUS 2.1 MG/DL (2.3-4.5)
[2022-05-20 01:34] LABS: ETHANOL < 0.010 GM/DL (0.0-0.010)
[2022-05-20] MEDS ORDERED: RIVA20TA PO (02:07)
[2022-05-20 03:49] VITALS: BP 99/51
--- NOTE | 2022-05-20 06:12 | NUR ---
FFP GIVEN. MANUALLY CHARTED. DOCUMENTATION WITH PT'S CHART AFTER IT WAS FAXED TO [facility]LO[facility]ANK. CALLED [facility] AND VERIFIED THEY RECIEVED DOCUMENTATION
--- NOTE | 2022-05-20 06:40 | NUR ---
PT INCONT OF URINE X1 LARGE AMT. UP TO BSC WITH MIN ASST. NO VOID. LINEN CHANGED.
[2022-05-20] MEDS: metoprolol succinate 25mg (24-HOUR) SR. Tablet PO SCH (08:00)
[2022-05-20] MEDS: docusate sod 100mg capsule PO SCH ×2 (09:12→19:09)
[2022-05-20] MEDS: levoTHYROXINE 100mcg tablet PO SCH (09:12)
--- NOTE | 2022-05-20 10:58 | NUR ---
Note katlinbarry in EDM - 05/20/22 at 1827 by ENDER spoke with christen wolfe at [facility]. gave her an update on pts status. abd pain, morphine given. had large bloody stool. h&h drawn
--- NOTE | 2022-05-20 15:32 | NUR ---
Gonzalez morales in [facility] - 05/20/[address] ESCUDERO AT [facility].
--- NOTE | 2022-05-20 15:32 | NUR ---
DR. ESCUDERO AT BEDSIDE.
[2022-05-20] MEDS ORDERED: PEG 3350/Na sulf,bicarb,Cl/KCl oral sol 4 liter bottle PO ONE (16:25)
--- NOTE | 2022-05-20 16:35 | NUR ---
SPOKE TO DR. MARIE, PT ABD IS MORE DISTENDED AND SLIGHTLY FIRM THAN THIS AM. PT HAS NOT VOIDED ALL DAY. NEW ORDERS: INSERT BURGESS CATH, LASIX 40MG,
--- NOTE | 2022-05-20 16:55 | NUR ---
MIRIAM FROM GI LAB CALLED. DOING COLONOSCOPY IN AM . START GOLYTELY NOW
[2022-05-20] MEDS: furosemide 10 MG/1 ML 10ml inj IV SCH (17:55)
[2022-05-20] MEDS: ROPINIRole 0.25mg tablet PO SCH (19:11)
[2022-05-20 19:26] LABS: URINE AMPHETAMINE SCREEN NEGATIVE (Neg); URINE BARBITUATE SCREEN NEGATIVE (Neg); URINE BENZODIAZEPINES SCREEN POSITIVE (Neg); URINE CANNABINOID SCREEN NEGATIVE (Neg); URINE COCAINE SCREEN NEGATIVE (Neg); URINE METHADONE SCREEN NEGATIVE (Neg); URINE OPIATE SCREEN NEGATIVE (Neg); URINE PHENCYCLIDINE SCREEN NEGATIVE (Neg)
[2022-05-20] MEDS ORDERED: temazepam 15mg capsule PO PRN (21:00)
--- NOTE | 2022-05-20 21:17 | NUR ---
PT ENCOURAGED TO DRINK GOLYTE FOR BOWEL PREP, GI LAB STATES WOULD LIKE PATIENT AROUND 0730
--- NOTE | 2022-05-20 22:06 | NUR ---
PATIENT AGAIN ENCOURAGED TO DRINK BOWEL PREP
--- NOTE | 2022-05-20 23:23 | NUR ---
PATIENT AHD LARGE LIQUID BM, ENCOURAGED TO CONTINUE DRINKING BOWEL PREP, LINENS CHANGED, ROOM CLEANED
[2022-05-21] VITALS (17 sets, daily range): BP systolic 84–103; BP diastolic 41–73
--- NOTE | 2022-05-21 01:13 | NUR ---
patient found on abd face down,n with large amount of liquid stool surrounding, bleeding from former iv site in left hand, pt cleaned, bleeding controlled with gauze and md capri informed, charge notified, process control supervisor notified,
--- NOTE | 2022-05-21 01:21 | NUR ---
Patient in room ED 1. I have received report from Hector OREILLY and had the opportunity to ask questions and assume patient care.
--- NOTE | 2022-05-21 01:21 | NUR ---
report given to melida on ortho, obtaining telebox and awaiting patient
--- NOTE | 2022-05-21 01:29 | NUR ---
per dr kulkarni monitor patient for changes from baseline due to no complaints s/p finding patient on stomach
--- NOTE | 2022-05-21 03:23 | NUR ---
Agree with admission assessment done by Felton Mcadams
[2022-05-21 06:28] LABS: BASOPHILS % (AUTO) 0.5 % (0-1); EOSINOPHILS # (AUTO) 0.1 X10'3 (0-0.9); EOSINOPHILS % (AUTO) 1.5 % (0-6); HEMOGLOBIN 7.2 g/dl (12.0-16.0); LYMPHOCYTES # (AUTO) 1.1 X10'3 (1.1-4.8); LYMPHOCYTES % (AUTO) 16.6 % (21-51); MEAN CORPUSCULAR HEMOGLOBIN 37.4 PG (27.0-31.0); MEAN CORPUSCULAR HGB CONC 35.2 g/dL (33.0-36.5); MEAN CORPUSCULAR VOLUME 106.3 FL (78-98); MEAN PLATELET VOLUME 8.1 FL (7.4-10.4); MONOCYTES # (AUTO) 0.3 X10'3 (0-0.9); MONOCYTES % (AUTO) 4.1 % (2-12); NEUTROPHILS # (AUTO) 5.1 X10'3 (1.8-7.7); NEUTROPHILS % (AUTO) 77.3 % (42-75); PLATELET COUNT 90 X10'3 (140-440); RED BLOOD COUNT 1.93 X10'6 (4.20-5.60); RED CELL DISTRIBUTION WIDTH 20.9 % (11.5-14.5); WHITE BLOOD COUNT 6.6 X10'3 (4.5-11.0)
[2022-05-21 06:29] LABS: APTT 47 SECONDS (22-32)
[2022-05-21 06:39] LABS: ALANINE AMINOTRANSFERASE 90 U/L (12-78); ALKALINE PHOSPHATASE 129 IU/L (46-116); ANION GAP 10 (8-16); BILIRUBIN,TOTAL 21.1 MG/DL (0.1-1.0); BLOOD UREA NITROGEN 20 MG/DL (7-18); BUN/CREATININE RATIO 19.8 (6.6-38.0); CALCIUM 7.8 MG/DL (8.5-10.1); CHLORIDE 99 MMOL/L (99-107); CREATININE 1.01 MG/DL (0.40-0.90); SODIUM 133 MMOL/L (135-145); TOTAL CARBON DIOXIDE 23.7 MMOL/L (24-32); eGFR 56 ML/MIN
[2022-05-21 06:42] LABS: HEMOGLOBIN A1C 4.5 % (4.5-6.2)
--- NOTE | 2022-05-21 06:43 | NUR ---
Problems reprioritized. Patient report given, questions answered & plan of care reviewed with Keren OREILLY.
[2022-05-21 06:47] LABS: ALBUMIN/GLOBULIN RATIO 0.5 (1.1-1.5); ASPARTATE AMINO TRANSFERASE 246 U/L (10-37); GLUCOSE 91 MG/DL (70-104); POTASSIUM 3.4 MMOL/L (3.5-5.1); TOTAL PROTEIN 5.7 G/DL (6.4-8.2)
[2022-05-21 06:48] LABS: HEMATOCRIT 20.5 % (35.0-45.0)
--- NOTE | 2022-05-21 06:55 | NUR ---
PAGER ID: [phone] MESSAGE: Marlen King in [id number] Critical H&H of 7.2 and 20.5 -Keren [phone]
[2022-05-21] MEDS: metoprolol succinate 25mg (24-HOUR) SR. Tablet PO SCH (07:18)
[2022-05-21] MEDS: furosemide 10 MG/1 ML 10ml inj IV SCH (07:19)
[2022-05-21] MEDS: docusate sod 100mg capsule PO SCH ×2 (07:32→20:00)
[2022-05-21] MEDS: levoTHYROXINE 100mcg tablet PO SCH (09:12)
[2022-05-21] MEDS ORDERED: LIDOcaine 1%/PF 5ML 10 MG/ML VIAL ONE (09:50)
--- NOTE | 2022-05-21 09:56 | NUR ---
Bert OREILLY, [employer],stated she received order to DC telemetry monitoring on this pt. Orders placed in [facility], DENILSON Veliz and [place] notified.
--- NOTE | 2022-05-21 10:04 | NUR ---
Wound consult: Per RN/TONGUE TRIMMER skin assessment pt with a wound on toenail about 1-2 cm wide on left second toe with red but blanchable sacrum and BLE cellulitis. No apparent significant wounds at this time. Pending documentation of PO intake on a heart healthy diet. Will monitor trends in PO intake and need for nutrition intervention. Noted pt with PMH T2DM per EMR, well controlled with A1c 4.5%. DM education not warranted at this time. Will continue to follow. Addendum: 05/21/22 at [address] Amended: Links added.
[2022-05-21 11:18] LABS: GLUCOSE,BODY FLUID 98 MG/DL; LDH,BODY FLUID 41 U/L
[2022-05-21 11:45] LABS: BF RBC COUNT 36 /CU MM; BF WBC COUNT 39 /CU MM (0-1000); BFAPPEAR CLEAR; BFCOLOR YELLOW; BFVOLUME 50 ML; LYMPHOCYTES,BODY FLUID 64 %; MONOCYTES,BODY FLUID 31 %; NEUTROPHILS,BODY FLUID 5 %
[2022-05-21] MEDS: normal saline 1000ml 1,000 ML IV SCH ×2 (12:17→20:41)
[2022-05-21] MEDS ORDERED: MIDAZolam 1 MG/ML 5ML VIAL ONE (16:04)
[2022-05-21] MEDS ORDERED: fentaNYL/PF 50MCG/1 ML 2ML syringe ONE (16:04)
[2022-05-21] MEDS ORDERED: diphenhydrAMINE 50 mg/ml inj ONE (16:05)
--- NOTE | 2022-05-21 18:30 | NUR ---
pt returned from GI lab. verbal report from sending nurse at bedside. freq vs programmed. noted fingers were cold so sat reading was not initially accurate.
--- NOTE | 2022-05-21 18:39 | NUR ---
Problems reprioritized. Patient report given, questions answered & plan of care reviewed with Danny OREILLY.
[2022-05-21] MEDS: ROPINIRole 0.25mg tablet PO SCH (20:40)
[2022-05-22] MEDS: normal saline 1000ml 1,000 ML IV SCH (02:13)
[2022-05-22 06:20] LABS: BASOPHILS % (AUTO) 0.4 % (0-1); EOSINOPHILS # (AUTO) 0.1 X10'3 (0-0.9); EOSINOPHILS % (AUTO) 2.1 % (0-6); HEMOGLOBIN 7.6 g/dl (12.0-16.0); LYMPHOCYTES # (AUTO) 1.2 X10'3 (1.1-4.8); LYMPHOCYTES % (AUTO) 19.7 % (21-51); MEAN CORPUSCULAR HEMOGLOBIN 37.6 PG (27.0-31.0); MEAN CORPUSCULAR HGB CONC 34.7 g/dL (33.0-36.5); MEAN CORPUSCULAR VOLUME 108.5 FL (78-98); MEAN PLATELET VOLUME 8.2 FL (7.4-10.4); MONOCYTES # (AUTO) 0.3 X10'3 (0-0.9); MONOCYTES % (AUTO) 4.6 % (2-12); NEUTROPHILS # (AUTO) 4.6 X10'3 (1.8-7.7); NEUTROPHILS % (AUTO) 73.2 % (42-75); PLATELET COUNT 90 X10'3 (140-440); RED BLOOD COUNT 2.03 X10'6 (4.20-5.60); RED CELL DISTRIBUTION WIDTH 21.8 % (11.5-14.5); WHITE BLOOD COUNT 6.3 X10'3 (4.5-11.0)
[2022-05-22 06:23] LABS: APTT 42 SECONDS (22-32)
--- NOTE | 2022-05-22 06:34 | NUR ---
reported to days. noted critical h/H called to dr. kulkarni. no orders.
[2022-05-22 06:35] LABS: ALANINE AMINOTRANSFERASE 92 U/L (12-78); ALBUMIN 1.9 G/DL (3.4-5.0); ALKALINE PHOSPHATASE 133 IU/L (46-116); ANION GAP 11 (8-16); BILIRUBIN,TOTAL 22.1 MG/DL (0.1-1.0); BLOOD UREA NITROGEN 19 MG/DL (7-18); CALCIUM 7.6 MG/DL (8.5-10.1); CHLORIDE 101 MMOL/L (99-107); SODIUM 135 MMOL/L (135-145); TOTAL CARBON DIOXIDE 23.3 MMOL/L (24-32)
[2022-05-22 06:37] LABS: ALBUMIN/GLOBULIN RATIO 0.5 (1.1-1.5); ASPARTATE AMINO TRANSFERASE 231 U/L (10-37); BUN/CREATININE RATIO 17.8 (6.6-38.0); CREATININE 1.07 MG/DL (0.40-0.90); GLUCOSE 106 MG/DL (70-104); POTASSIUM 3.1 MMOL/L (3.5-5.1); TOTAL PROTEIN 5.5 G/DL (6.4-8.2); eGFR 52 ML/MIN
[2022-05-22 07:02] LABS: PLATELET ESTIMATE DECREASED
[2022-05-22 07:04] LABS: ANISOCYTOSIS 3+; HYPOCHROMASIA 1+; POLYCHROMASIA 3+; STOMATOCYTES 1+; TARGET CELLS FEW; TEAR DROP CELLS 1+
[2022-05-22] MEDS: levoTHYROXINE 100mcg tablet PO SCH (07:18)
[2022-05-22] MEDS: docusate sod 100mg capsule PO SCH (07:18)
[2022-05-22] MEDS: furosemide 10 MG/1 ML 10ml inj IV SCH (07:19)
[2022-05-22] MEDS: metoprolol succinate 25mg (24-HOUR) SR. Tablet PO SCH (07:20)
[2022-05-22 11:57] VITALS: BP 97/63
[2022-05-22] MEDS ORDERED: FURO-149 PO (12:46)
--- NOTE | 2022-05-22 13:30 | NUR ---
PRESSURE ULCER EDUCATION: DEFINITION: A pressure ulcer is an area of skin that breaks down when you stay in one position too long. The constant pressure against the skin reduces the blood flow to that area and the affected tissue dies. CAUSES: "Being bedridden or in a wheelchair "Fragile skin "Having a chronic condition, such as diabetes or vascular disease "Inability to move certain parts of your body without assistance "Older age "Incontinence of urine or stool SYMPTOMS: "A reddened area that DOES NOT turn white when pressed on - this can be the beginning of a pressure ulcer "A blister, deep sore or a crater - these can be advanced pressure ulcers FIRST AID: "Relieve the pressure on this area "Keep the area clean and dry "Call your primary doctor if you see any of the above symptoms "DO NOT massage the area "DO NOT use a donut shaped or ring shaped pillow- these actually interfere with the blood flow and cause complications PREVENTION: "Check for pressure ulcers everyday "Change position at least every two hours to relieve pressure "Use items that help relieve pressure- pillows, sheepskin, foam padding, and powders. "Keep skin clean and dry "Eat healthy well balanced meals "Exercise daily IF YOU SEE ANY OF THESE SYMPTOMS WHILE IN THE HOSPITAL - TELL YOUR NURSE IMMEDIATELY. IF YOU SEE ANY OF THESE SYMPTOMS WHILE AT HOME OR HAVE ANY QUESTIONS OR CONCERNS ABOUT PRESSURE ULCERS - CALL YOUR PRIMARY DOCTOR IMMEDIATELY. Addendum: 05/22/22 at 1330 by Bing Nguyen LVN Amended: Links added.
== END 2022-05-22 16:25 | disposition home health service (06) | DRG 280 ==
LOC: ER 15:15 → ED HOLD 05-20 00:43 → UNDOADMIN 05-20 00:43 → ED HOLD 05-20 00:48 → ORTHO 4S 05-21 01:39
PROVIDERS: ADMIT Family Medicine; ATTEND Family Medicine
PROC: 30233K1 Transfusion of Nonautologous Frozen Plasma into Peripheral Vein, Percutaneous Approach (ICD-10-PCS; 2022-05-20)
PROC: 0W9G3ZX Drainage of Peritoneal Cavity, Percutaneous Approach, Diagnostic (ICD-10-PCS; principal; 2022-05-21)
PROC: 0DBK8ZX Excision of Ascending Colon, Via Natural or Artificial Opening Endoscopic, Diagnostic (ICD-10-PCS; 2022-05-21)
DX: K70.31 Alcoholic cirrhosis of liver with ascites (principal); D68.9 Coagulation defect, unspecified; K72.10 Chronic hepatic failure without coma; N17.9 Acute kidney failure, unspecified; I95.9 Hypotension, unspecified; E87.1 Hypo-osmolality and hyponatremia; E88.09 Other disorders of plasma-protein metabolism, not elsewhere classified; K76.6 Portal hypertension; K92.1 Melena; K64.8 Other hemorrhoids; Z66 Do not resuscitate; Z60.2 Problems related to living alone; G25.81 Restless legs syndrome; K63.5 Polyp of colon; K57.30 Diverticulosis of large intestine without perforation or abscess without bleeding; D64.9 Anemia, unspecified; E86.1 Hypovolemia; I48.91 Unspecified atrial fibrillation; E03.9 Hypothyroidism, unspecified; E87.70 Fluid overload, unspecified; G62.9 Polyneuropathy, unspecified; I12.9 Hypertensive chronic kidney disease with stage 1 through stage 4 chronic kidney disease, or unspecified chronic kidney disease; N18.9 Chronic kidney disease, unspecified; K80.20 Calculus of gallbladder without cholecystitis without obstruction; Z81.1 Family history of alcohol abuse and dependence; Z82.5 Family history of asthma and other chronic lower respiratory diseases; Z80.9 Family history of malignant neoplasm, unspecified; Z79.899 Other long term (current) drug therapy
CPT/HCPCS: 36415; 36430; 45385; 49083; 71045; 80053; 80305; 80320; 82140; 82550; 82945; 83036; 83615; 83735; 83880; 84100; 84439; 84443; 84480; 85008; 85025; 85027; 85384; 85610; 85730; 86870; 86885; 86900; 86901; 86902; 86905; 87070; 87081; 89051; 93005; 96374; 99152; 99285; A4314; A4620; C1773; C9113; G0378; J1200; J1940; J2250; J3010; J3430; J3490; J7030; P9047; P9059